=== PATIENT | female | born 1950 | race Caucasian/White ===

== ENCOUNTER 2019-01-22 18:11 | Emergency (ER) | payer MEDICARE, OTHER ==
--- NOTE | 2019-01-22 19:18 | ED ---
General Adult HPI - General Chief complaint: Recheck/Abnormal Lab/Rx Stated complaint: diabetic issue Time Seen by Provider: 01/22/19 18:47 Source: patient Mode of arrival: ambulatory Limitations: no limitations - History of Present Illness Initial comments: Patient is a 68-year-old female with type 2 diabetes presenting to emergency Department with a chief complaint of high blood sugar. Patient reports over the last several months she has not been able to finish her sentences and has been sleeping in more than usual. Patient reports this has been going on intermittently. 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 Patient reports she used to be on metformin but then she stopped going to the doctor. Patient reports today she decided to go back to her primary care but was not able to obtain an appointment soon enough, so she went to [facility] where they obtained a high blood sugar and advised her to come to this ED. Patient denies blurry vision or chest pain, shortness of breath, headache, nausea, vomiting, confusion. Patient does report increased urgency but denies frequency or dysuria. Patient denies any bowel symptoms. Patient denies any abdominal back pain. Patient denies one-sided weakness or paresthesias. - Related Data Previous Rx's Medication Instructions Recorded Sulfamethox-Tmp 800-160Mg [Bactrim 1 each PO Q12HR #20 tab 01/22/19 Ds] Allergies Allergy/AdvReac Type Severity Reaction Status Date / Time No Known Allergies Allergy Verified 01/22/19 20:10 Review of Systems ROS Statement: Those systems with pertinent positive or pertinent negative responses have been documented in the HPI. ROS Other: All systems not noted in ROS Statement are negative. Past Medical History Past Medical History: Diabetes Mellitus History of Any Multi-Drug Resistant Organisms: None Reported Past Surgical History: Tubal Ligation Additional Past Surgical History / Comment(s): bladder biopsy Past Anesthesia/Blood Transfusion Reactions: No Reported Reaction Past Psychological History: No Psychological Hx Reported Smoking Status: Never smoker Past Alcohol Use History: None Reported Past Drug Use History: None Reported General Exam Limitations: no limitations General appearance: alert, in no apparent distress Head exam: Present: atraumatic, normocephalic, normal inspection Eye exam: Present: normal appearance, PERRL, EOMI. Absent: scleral icterus, conjunctival injection Pupils: Present: normal accommodation ENT exam: Present: normal exam, normal oropharynx, mucous membranes moist, TM's normal bilaterally, normal external ear exam Neck exam: Present: normal inspection, full ROM. Absent: tenderness, lymphadenopathy Respiratory exam: Present: normal lung sounds bilaterally. Absent: respiratory distress, wheezes, rales, chest wall tenderness, accessory muscle use Cardiovascular Exam: Present: regular rate, normal rhythm, normal heart sounds GI/Abdominal exam: Present: soft. Absent: distended, tenderness, guarding, rebound Extremities exam: Present: normal inspection, full ROM, normal capillary refill. Absent: other Back exam: Present: normal inspection, full ROM Neurological exam: Present: alert, oriented X3, CN II-XII intact, normal gait, reflexes normal Psychiatric exam: Present: normal affect, normal mood Skin exam: Present: warm, dry, intact, normal color Course Vital Signs 01/22/19 01/22/19 01/22/19 18:40 20:40 21:37 Temperature 97.9 F 97.7 F 98.7 F Pulse Rate 118 H 90 82 Respiratory 19 18 18 Rate Blood Pressure 184/91 162/81 150/72 O2 Sat by Pulse 98 96 100 Oximetry Medical Decision Making - Medical Decision Making patient is a 68-year-old female with history of type 2 diabetes is presenting to the emergency department with a chief complaint of high blood sugar. According to the mother the patient has apparently also been sleeping in and has not been able to finish her sentences for last several months. CT of the brain is indicative of no acute intracranial changes does indicate a chronic inferior right cerebellar infarct. Patient is not exhibiting any signs of aphasia. Patient is walking slightly abnormally however she states that her baseline due to previous leg injury. CBC and CMP are unremarkable. UA is indicative of leukocyte esterase, white blood cells and nitrates. Patient will be treated for a UTI. The recent changes in personality could be attributed to the UTI considering the patient's age. Patient will be treated with antibiotics. Patient advised to establish a relationship with a new primary care so she came a monitored regularly for diabetes. Patient given a liter of fluids. Patient advised to receive at least 1 or 2 more liters of fluid. Patient given regular insulin. Patient declined states that she wants to go home. Strict return parameters were thoroughly discussed with patient was understanding and agreeable. Case discussed with physician. - Lab Data Result diagrams: 01/22/19 19:35 01/22/19 19:35 Lab Results 01/22/19 01/22/19 01/22/19 Range/Units 19:23 19:35 19:35 WBC 9.8 (3.8-10.6) k/uL RBC 3.18 L (3.80-5.40) m/uL Hgb 13.2 (11.4-16.0) gm/dL Hct 38.2 (34.0-46.0) % MCV 120.0 H (80.0-100.0) fL MCH 41.5 H (25.0-35.0) pg MCHC 34.6 (31.0-37.0) g/dL RDW 14.4 (11.5-15.5) % Plt Count 334 (150-450) k/uL Neutrophils % 75 % Lymphocytes % 20 % Monocytes % 3 % Eosinophils % 1 % Basophils % 0 % Neutrophils # 7.4 (1.3-7.7) k/uL Lymphocytes # 2.0 (1.0-4.8) k/uL Monocytes # 0.3 (0-1.0) k/uL Eosinophils # 0.1 (0-0.7) k/uL Basophils # 0.0 (0-0.2) k/uL Manual Slide Review Performed Macrocytosis Marked A Sodium 138 (137-145) mmol/L Potassium 4.1 (3.5-5.1) mmol/L Chloride 100 (98-107) mmol/L Carbon Dioxide 27 (22-30) mmol/L Anion Gap 11 mmol/L BUN 22 H (7-17) mg/dL Creatinine 0.70 (0.52-1.04) mg/dL Est GFR (CKD-EPI)AfAm >90 (>60 ml/min/1.73 sqM) Est GFR (CKD-EPI)NonAf >90 (>60 ml/min/1.73 sqM) Glucose 372 H (74-99) mg/dL Calcium 9.6 (8.4-10.2) mg/dL Total Bilirubin 1.4 H (0.2-1.3) mg/dL AST 32 (14-36) U/L ALT 39 (9-52) U/L Alkaline Phosphatase 81 (38-126) U/L Total Protein 8.2 (6.3-8.2) g/dL Albumin 4.9 (3.5-5.0) g/dL Urine Color Yellow Urine Appearance Turbid H (Clear) Urine pH 5.0 (5.0-8.0) Ur Specific [place] 1.036 H (1.001-1.035) Urine Protein 1+ H (Negative) Urine Glucose (UA) 4+ H (Negative) Urine Ketones 1+ H (Negative) Urine Blood Moderate H (Negative) Urine Nitrite Positive H (Negative) Urine Bilirubin Negative (Negative) Urine Urobilinogen 2.0 (<2.0) mg/dL Ur Leukocyte Esterase Large H (Negative) Urine RBC 17 H (0-5) /hpf Urine WBC >182 H (0-5) /hpf Ur Squamous Epith Cells 2 (0-4) /hpf Urine Bacteria Many H (None) /hpf Urine Mucus Few H (None) /hpf Urine Yeast (Budding) Few H (None) /hpf Disposition Clinical Impression: Urinary tract infection Disposition: HOME SELF-CARE Condition: Stable Instructions (If sedation given, give patient instructions): Urinary Tract Infection in Women (ED) Additional Instructions: Please take prescribed medication as directed. Please follow up primary care. Please return to emergency department if symptoms worsen. Prescriptions: Sulfamethox-Tmp 800-160Mg [Bactrim Ds] 1 each PO Q12HR #20 tab Is patient prescribed a controlled substance at d/c from ED?: No Referrals: None,Stated [Primary Care Provider] - 1-2 days Blair Ochoa MD [REFERRING] - 1-2 days Time of Disposition: 21:12
[2019-01-22] MEDS ORDERED: SODIUM CHLORIDE 0.9% 1,000 ML IV STA (19:30)
[2019-01-22 19:44] LABS: Appearance,Urine Turbid (Clear); Bacteria,Urine Many /hpf; Bilirubin,Urine Negative (Negative); Blood,Urine Moderate (Negative); Budding Yeast,Urine Few /hpf; Color,Urine Yellow; Glucose,Urine (UA) 4+ (Negative); Ketones,Urine 1+ (Negative); Leukocyte Esterase,Urine Large (Negative); Mucus,Urine Few /hpf; Nitrite,Urine Positive (Negative); Protein,Urine 1+ (Negative); RBC,Urine 17 /hpf (0-5); Specific Gravity,Urine 1.036 (1.001-1.035); Squamous Epithelial Cell,Urine 2 /hpf (0-4)
[2019-01-22 20:02] LABS: Basophils % (A) 0 %; Eosinophils # (A) 0.1 k/uL (0-0.7); Eosinophils % (A) 1 %; HCT 38.2 % (34.0-46.0); HGB 13.2 gm/dL (11.4-16.0); Lymphocytes % (A) 20 %; MCH 41.5 pg (25.0-35.0); MCHC 34.6 g/dL (31.0-37.0); Macrocytosis Marked; Mean Platelet Volume 5.9; Monocytes # (A) 0.3 k/uL (0-1.0); Monocytes % (A) 3 %; Neutrophils # (A) 7.4 k/uL (1.3-7.7); Neutrophils % (A) 75 %; Platelet Count 334 k/uL (150-450); RBC 3.18 m/uL (3.80-5.40); RDW 14.4 % (11.5-15.5); WBC 9.8 k/uL (3.8-10.6)
[2019-01-22 20:29] LABS: ALT 39 U/L (9-52); AST 32 U/L (14-36); African American GFR (CKD) >90 (>60 ml/min/1.73 sqM); Albumin 4.9 g/dL (3.5-5.0); Alkaline Phosphatase 81 U/L (38-126); Anion Gap 11 mmol/L; Blood Urea Nitrogen 22 mg/dL (7-17); Calcium 9.6 mg/dL (8.4-10.2); Carbon Dioxide 27 mmol/L (22-30); Chloride 100 mmol/L (98-107); Glucose 372 mg/dL (74-99); Potassium 4.1 mmol/L (3.5-5.1); Sodium 138 mmol/L (137-145); Total Bilirubin 1.4 mg/dL (0.2-1.3); Total Protein 8.2 g/dL (6.3-8.2)
--- NOTE | 2019-01-22 20:33 | CT ---
EXAMINATION TYPE: CT brain [place] [facility] DATE OF EXAM: 01/22/2019 COMPARISON: CT brain September 03, 2010. HISTORY: Confusion, dysphasia. Neck pain. CT DLP: 1271.4 mGycm. Automated Exposure Control for Dose Reduction was Utilized. TECHNIQUE: CT scan of the head and cervical spine are performed without contrast. FINDINGS: There is no acute intracranial hemorrhage or midline shift identified. Diffuse ventricula r and sulcal prominence. Some low-attenuation in the deep and periventricular white matter. Age-indet erminate inferior right cerebellar infarct new from 2010 CT suspected subacute or chronic in age. Cor relate clinically. The globes are intact and the visualized sinuses are clear. Cervical spine is visualized in its entirety from C1 through upper thoracic levels and demonstrates s traightens alignment without evidence of acute fracture or dislocation. There is grade 1 anterolisthe sis of C3 on C4. Prevertebral soft tissue appears within normal limits. The C1-C2 articulation is w ithin normal limits on the coronal images. Vertebral body heights are maintained. Mild to moderate d isc space narrowing C4-C5 level with moderate disc space narrowing and spurring C5-C6 and C6-C7 level s. Posterior spur disc complex effaces the anterior thecal sac at C5-C6 level. Posterior disc herniat ion effaces the anterior thecal sac at C4-C5 level. Axial images show multilevel uncovertebral facet degenerative changes left C2-C3 and C3-C4 levels along with bilateral C4-C5 levels. Thyroid gland is within normal limits. Lung apices are clear. IMPRESSION: 1. There is no acute fracture or dislocation evident in the cervical spine. 2. No acute intracranial hemorrhage or midline shift is seen. Subacute or chronic inferior right cere bellar infarct is felt present. Correlate clinically.
[2019-01-22 20:41] VITALS: RESP 18
[2019-01-22] MEDS ORDERED: cefTRIAXone IN SWFI 1,000 MG/10 ML SYRINGE IVP STA (21:11)
[2019-01-22] MEDS ORDERED: INSULIN REGULAR 100 UNIT/ML VIAL IV ONE (21:13)
[2019-01-22 21:39] VITALS: BP 150/72; PULSE 82; TEMP 98.7
== END 2019-01-22 21:39 | disposition home or self-care (01) ==
LOC: EC 18:11
DX: N39.0 Urinary tract infection, site not specified (principal); E11.65 Type 2 diabetes mellitus with hyperglycemia; F68.8 Other specified disorders of adult personality and behavior; Z79.84 Long term (current) use of oral hypoglycemic drugs
CPT/HCPCS: 36415; 80053; 85025; 81001; 87086; 87077; 87186; 72125; 70450; 99285; 96374; 96361; J0696

== ENCOUNTER → 2019-02-08 | Outpatient (CLI) | payer MEDICARE ==
[2019-02-08 10:10] LABS: Basophils % (A) 0 %; Eosinophils # (A) 0.1 k/uL (0-0.7); Eosinophils % (A) 1 %; HCT 37.1 % (34.0-46.0); Lymphocytes # (A) 1.2 k/uL (1.0-4.8); Lymphocytes % (A) 13 %; MCHC 35.2 g/dL (31.0-37.0); MCV 120.6 fL (80.0-100.0); Macrocytosis Marked; Mean Platelet Volume 6.3; Monocytes # (A) 0.2 k/uL (0-1.0); Monocytes % (A) 2 %; Neutrophils # (A) 7.7 k/uL (1.3-7.7); Neutrophils % (A) 83 %; Platelet Count 285 k/uL (150-450); RBC 3.07 m/uL (3.80-5.40); RDW 13.8 % (11.5-15.5); WBC 9.4 k/uL (3.8-10.6)
[2019-02-08 10:13] LABS: MCH 42.4 pg (25.0-35.0)
[2019-02-08 11:44] LABS: Hypersegmented Neutrophils Present
[2019-02-08 11:45] LABS: Poikilocytosis (M) Present
[2019-02-08 17:30] LABS: African American GFR (CKD) 49.5 (60.0-200.0); Albumin 4.6 g/dL (3.80-4.90); Albumin/Globulin Ratio 1.77 (1.60-3.17); Anion Gap 10.9 mmol/L (4.00-12.00); BUN/Creat Ratio 37.69 Ratio (12.00-20.00); Calcium 9.7 mg/dL (8.7-10.3); Carbon Dioxide 23.1 mmol/L (21.6-31.8); Chol/HDL Ratio 4.23; Globulin 2.6 g/dL (1.6-3.3); LDL Cholesterol,Calculated 69.4 mg/dL (0.0-131.0); Non-African American GFR(CKD) 42.7 (60.0-200.0); Total Bilirubin 0.7 mg/dL (0.3-1.2); Total Protein 7.2 g/dL (6.2-8.2); VLDL Calculation 43.6 mg/dL (5.00-40.00)
== END | disposition home or self-care (01) ==
LOC: LABWHC1 09:10
PROVIDERS: ATTEND Psychiatry & Neurology Neurology
DX: E55.9 Vitamin D deficiency, unspecified (principal); I63.9 Cerebral infarction, unspecified; E78.5 Hyperlipidemia, unspecified; R41.3 Other amnesia
CPT/HCPCS: 36415; 80053; 80061; 82306; 82607; 83090; 84207; 85025

== ENCOUNTER 2019-03-21 09:45 | Emergency (ER) | payer MEDICARE ==
--- NOTE | 2019-03-21 10:32 | ED ---
Extremity Problem HPI - General Chief complaint: Extremity Problem,Nontraumatic Stated complaint: left knee pain Time Seen by Provider: 03/21/19 09:56 Source: patient Mode of arrival: wheelchair Limitations: no limitations - History of Present Illness Initial comments: Patient is a 68-year-old female presenting to emergency Department with complaints of left knee pain since yesterday. Patient denies any injuries or fall to left knee. Patient states she has been having intermittent mild pain for years now. No surgeries. Patient states she woke up for a nap yesterday with some mild pain but now she is unable to bear weight on the left lower extremity. Patient denies history of DVT, is not on blood thinners. Patient denies fever, chills, nausea, vomiting. She has no other complaints at this time. Upon arrival to the ER, her vital signs are stable. - Related Data Previous Rx's Medication Instructions Recorded Sulfamethox-Tmp 800-160Mg [Bactrim 1 each PO Q12HR #20 tab 01/22/19 Ds] Allergies Allergy/AdvReac Type Severity Reaction Status Date / Time No Known Allergies Allergy Verified 03/21/19 09:50 Review of Systems ROS Statement: Those systems with pertinent positive or pertinent negative responses have been documented in the HPI. ROS Other: All systems not noted in ROS Statement are negative. Past Medical History Past Medical History: Diabetes Mellitus History of Any Multi-Drug Resistant Organisms: None Reported Past Surgical History: Tubal Ligation Additional Past Surgical History / Comment(s): bladder biopsy Past Anesthesia/Blood Transfusion Reactions: No Reported Reaction Past Psychological History: No Psychological Hx Reported Smoking Status: Never smoker Past Alcohol Use History: None Reported Past Drug Use History: None Reported General Exam - General Exam Comments Initial Comments: GENERAL: Well-appearing, well-nourished and in no acute distress. Patient sitting in wheelchair with left knee extended. HEAD: Atraumatic, normocephalic. EYES: Pupils equal round and reactive to light, extraocular movements intact, sclera anicteric, conjunctiva are normal. ENT: Moist mucous membranes. NECK: Normal range of motion, supple without lymphadenopathy or JVD. LUNGS: Breath sounds clear to auscultation bilaterally and equal. No wheezes rales or rhonchi. HEART: Regular rate and rhythm without murmurs, rubs or gallops. ABDOMEN: Soft, nontender, normoactive bowel sounds. No guarding, no rebound. No masses appreciated. EXTREMITIES: Pain with palpation of the anterior left knee as well as posterior aspect, significant pain with slight left knee flexion. Extension is full. There is no swelling or overlying erythema. Sensation is equal bilateral.. No pain in the bilateral calf area. NEUROLOGICAL: Normal speech.. PSYCH: Normal mood, normal affect. SKIN: Warm, Dry, normal turgor, no rashes or lesions noted. Limitations: no limitations Course Vital Signs 03/21/19 03/21/19 09:49 12:14 Temperature 97.3 F L 98 F Pulse Rate 115 H 78 Respiratory 18 16 Rate Blood Pressure 176/94 150/78 O2 Sat by Pulse 100 98 Oximetry Medical Decision Making - Medical Decision Making Patient is a 8-year-old male presenting with left knee pain times one day. No injuries or trauma. No history DVT. Ultrasound of the right lower extremity shows no signs of DVT. X-rays reveal large amount of arthritic changes. These findings were discussed with the patient. Patient will be given referral to orthopedics. She is in agreement with this plan of care. She will have a trial of anti-inflammatories as well as compression wrapping. Disposition Clinical Impression: Left knee pain Disposition: HOME SELF-CARE Condition: Stable Instructions (If sedation given, give patient instructions): Knee Pain (ED) Additional Instructions: Please return to the Emergency Department if symptoms worsen or any other concerns. Trial of heat and/or ice to the left knee. Anti-inflammatories such as Aleve. Follow-up with orthopedics as discussed. Is patient prescribed a controlled substance at d/c from ED?: No Referrals: Bruce Love DO [Primary Care Provider] - 1-2 days Thro Melendez MD [Medical Doctor] - 1-2 days
--- NOTE | 2019-03-21 10:50 | US ---
EXAMINATION TYPE: US venous doppler duplex LE LT DATE OF EXAM: 03/21/2019 10:43 AM COMPARISON: NONE CLINICAL HISTORY: pain. Severe left knee pain SIDE PERFORMED: left TECHNIQUE: The lower extremity deep venous system is examined utilizing real time linear array sonog jose with graded compression, doppler sonography and color-flow sonography. VESSELS IMAGED: External Iliac Vein (EIV) Common Femoral Vein Deep Femoral Vein Greater Saphenous Vein * Femoral Vein Popliteal Vein Small Saphenous Vein * Proximal Calf Veins (* superficial vessels) Left Leg: No evidence of DVT as visualized IMPRESSION: 1. Left lower extremity ultrasound negative for deep venous thrombosis.
--- NOTE | 2019-03-21 11:28 | XR ---
EXAMINATION TYPE: XR knee complete LT DATE OF EXAM: 03/21/2019 CLINICAL HISTORY: Left knee pain TECHNIQUE: Three views of the left knee are obtained. COMPARISON: None. FINDINGS: There is no acute fracture/dislocation evident in left knee. There is advanced tricompartm ental arthropathy with joint space narrowing and marginal osteophyte. There is also bicompartmental c hondrocalcinosis of the medial and lateral compartments. Diffuse osseous demineralization is seen. Th ere is a moderate suprapatellar joint effusion. IMPRESSION: There is no acute fracture or dislocation in the left knee. Advanced tricompartmental ar thropathy, bicompartmental chondrocalcinosis, and moderate suprapatellar joint effusion.
[2019-03-21] MEDS ORDERED: IBUPROFEN 600 MG TAB PO STA (12:02)
[2019-03-21 12:16] VITALS: BP 150/78; PULSE 78; RESP 16; TEMP 98
== END 2019-03-21 12:14 | disposition home or self-care (01) ==
LOC: EC 09:45
DX: M25.562 Pain in left knee (principal); E11.9 Type 2 diabetes mellitus without complications
CPT/HCPCS: 99284

== ENCOUNTER → 2019-05-09 | Outpatient (CLI) | payer MEDICARE ==
[2019-05-09 17:42] LABS: HCT 33.9 % (34.0-46.0); HGB 11.1 gm/dL (11.4-16.0); MCHC 32.7 g/dL (31.0-37.0); MCV 94.8 fL (80.0-100.0); Mean Platelet Volume 6.9; Platelet Count 432 k/uL (150-450); RBC 3.58 m/uL (3.80-5.40); RDW 13.7 % (11.5-15.5)
[2019-05-09 17:54] LABS: INR 0.9 (<1.2); Partial Thromboplastin Time 25.2 sec (22.0-30.0); Prothrombin Time 9.8 sec (9.0-12.0)
[2019-05-09 17:55] LABS: Albumin 4.2 g/dL (3.5-5.0); Potassium 4.7 mmol/L (3.5-5.1); Total Bilirubin 0.5 mg/dL (0.2-1.3); Total Protein 7.3 g/dL (6.3-8.2)
== END ==
LOC: LABPAT 16:24
PROVIDERS: ATTEND Orthopaedic Surgery
DX: Z01.812 Encounter for preprocedural laboratory examination (principal)
CPT/HCPCS: 80053; 85027; 85610; 85730; 87070

== ENCOUNTER → 2019-05-09 | Outpatient (CLI) | payer MEDICARE ==
[2019-05-10 15:04] LABS: Appearance,Urine Clear (Clear); Bilirubin,Urine 1+ (Negative); Blood,Urine Negative (Negative); Color,Urine Yellow; Glucose,Urine (UA) Negative (Negative); Ketones,Urine Negative (Negative); Leukocyte Esterase,Urine Negative (Negative); Nitrite,Urine Negative (Negative); Protein,Urine Negative (Negative); Specific Gravity,Urine 1.025 (1.001-1.035)
== END | disposition home or self-care (01) ==
LOC: LABPAT 13:28
PROVIDERS: ATTEND Orthopaedic Surgery
DX: Z01.812 Encounter for preprocedural laboratory examination (principal)
CPT/HCPCS: 81003

== ENCOUNTER 2019-05-29 07:17 | Day surgery (SDC) | payer MEDICARE ==
[2019-05-25 15:55] VITALS: BMI 26.4
[~2019-05-29 07:17] MED LIST: ACETAMINOPHEN TAB 500 MG TAB PO ONE; DEXAMETHASONE SOD PHOSPHATE 10 MG/ML 1 ML VIAL IV ONE; GABAPENTIN 300 MG CAP PO ONE; HYDROmorphone 0.5 MG/0.5 ML SYRINGE IVP PRN; LACTATED RINGERS 1,000 ML IV SCH; LIDOCAINE 1% (10MG/ML) FOR IV START INTRADERMA PRN; MELOXICAM 7.5 MG TAB PO ONE; MIDAZOLAM 2 MG/2 ML VIAL IV PRN; ONDANSETRON 4 MG/2 ML VIAL IVP ONE; ROPIVACAINE 246.25 MG, EPINEPHrine 0.5 MG, KETOROLAC 30 MG, cloNIDine HCL/PF 80 MCG, WA... MISCELLANE ONE; TRANEXAMIC ACID 1,000 MG in SODIUM CHLORIDE 0.9% 100 ML IVPB ONE; fentaNYL (PF) 50 MCG/ML 2 ML AMP IV PRN
[2019-05-29 08:08] LABS: Glucose,Whole Blood 133 mg/dL (75-99)
[2019-05-29] MEDS ORDERED: fentaNYL (PF) 50 MCG/ML 2 ML AMP IVP ONE (08:38)
[2019-05-29] MEDS ORDERED: MIDAZOLAM 2 MG/2 ML VIAL IVP ONE (08:38)
[2019-05-29] MEDS ORDERED: PHENYLEPHRINE-0.9% NACL SYG 1 MG/10 ML SYRINGE ONE (09:43)
[2019-05-29] MEDS ORDERED: SODIUM CHLORIDE 0.9% 100 ML BAG ONE (09:43)
[2019-05-29] MEDS ORDERED: MIDAZOLAM 2 MG/2 ML VIAL ONE (09:43)
[2019-05-29] MEDS ORDERED: TRANEXAMIC ACID 1,000 MG/10 ML VIAL ONE (09:43)
[2019-05-29] MEDS ORDERED: PROPOFOL 10 MG/ML 20 ML VIAL IV ONE (09:43)
[2019-05-29] MEDS ORDERED: ceFAZolin 3,000 MG in SODIUM CHLORIDE 0.9% IRRIGATIO 3,000 ML IRRIGATION ONE (09:48)
[2019-05-29] MEDS ORDERED: ROPIVACAINE 0.2%-NS ON-Q PUMP 1,090 MG, EMPTY PAIN BALL 1 EACH MISCELLANE PRN (10:15)
--- NOTE | 2019-05-29 10:17 | P.ANPRN ---
Procedure Note - Anesthesia - Nerve Block Performed Left Adductor Canal Infusion Time Out Performed: Yes Date of Procedure: 05/29/19 Procedure Start Time: 08:35 Procedure Stop Time: 08:55 Location of Patient: PreOp Indication: Acute Post-Operative Pain, Dx/Pain Location, Requested by Surgeon Sedation Type: Sedate with meaningful contact maintained Preparation: Sterile Prep Position: Supine Catheter: Indwelling Needle Types: Pajunk Needle Gauge: 21 Ultrasound used to visualize needle placement: Yes Ultrasound used to observe medication spread: Yes Injectate: 0.5% Ropivacaine (see comment for volume) (15ml) Blood Aspirated: No Pain Paresthesia on Injection Noted: No Resistance on Injection: Normal Image Stored and Saved: Yes Events: Uneventful and Well Tolerated
--- NOTE | 2019-05-29 10:18 | P.ANPRN ---
Procedure Note - Anesthesia - Nerve Block Performed Left Other (see comment) Single Time Out Performed: Yes (IPACK NERVE BLOCK) Date of Procedure: 05/29/19 Procedure Start Time: 08:55 Procedure Stop Time: 09:00 Location of Patient: PreOp Indication: Acute Post-Operative Pain, Dx/Pain Location, Requested by Surgeon Sedation Type: Sedate with meaningful contact maintained Preparation: Sterile Prep Position: Right Lateral Catheter: None Needle Types: Pajunk Needle Gauge: 21 Ultrasound used to visualize needle placement: No Ultrasound used to observe medication spread: No Injectate: Other (see comment) (15 ML 0.25% ROPIVACAINE) Blood Aspirated: No Pain Paresthesia on Injection Noted: No Resistance on Injection: Normal Image Stored and Saved: Yes Events: Uneventful and Well Tolerated
[2019-05-29] MEDS ORDERED: LACTATED RINGERS 1,000 ML IV ONE (10:21)
--- NOTE | 2019-05-29 11:13 | P.OP ---
Date of Procedure: 05/29/19 Preoperative Diagnosis: Severe osteoarthritis left knee Postoperative Diagnosis: Severe osteoarthritis left knee Procedure(s) Performed: Left total knee arthroplasty Implants: [employer]hew Journey II CR Oxinium cruciate retaining femoral component size 5, left [employer]hew Journey left nonporous tibial baseplate size 4 [employer]hew Journey II, XLPE Deep Dished articular insert, size 12 mm, Size 3-4 left [employer] Journey BCS resurfacing oval patellar component, 29 mm All components were cemented using [place] R bone cement.. The articulation is Oxinium on polyethylene. Anesthesia: spinal Surgeon: Jayesh Deleon Care Director #1: Carlo Will Estimated Blood Loss (ml): 30 Pathology: other (Bone and cartilage) Condition: stable Disposition: PACU Indications for Procedure: After failure of conservative treatment we discussed the surgical and nonsurgical treatment options at length. Patient wishes to proceed with a total knee arthroplasty. Complications specific to this procedure were discussed at length, including but not limited to infection, bleeding, stiffness, and nerve injury. Patient is aware of all these complications and informed consent was obtained Operative Findings: The operative findings are consistent with severe osteoarthritis of the left knee Description of Procedure: Patient was seen in the preoperative area consent was reviewed and operative site was marked with a skin marker. An adductor canal pain catheter was placed by anesthesia in the preoperative area. Patient was then brought to the operating room and given preoperative antibiotics intravenously. A spinal anesthetic was administered by the anesthesia department. A tourniquet was placed on the upper thigh and the lower extremity was prepped and draped in usual sterile fashion. A gram of transexamic acid was given. A universal timeout was then performed which confirmed the patient's name, surgical site, ALLERGIES, and consent. The lower extremity was then exsanguinated and tourniquet was inflated to 250 mmHg. A standard and anterior midline approach to the knee was performed. The skin and subcutaneous tissue was dissected down to the patellar tendon. A medial parapatellar arthrotomy was then performed. The knee was then extended, the patellar was everted, and the knee was again flexed. The patellar fat pad was removed in order to enhance exposure. Anterior horns of both menisci were excised, and a release was performed to the posterior medial aspect of the knee. On gross visual inspection, there was complete loss of articular cartilage in the medial and patellofemoral joint spaces. There was also significant cartilage damage in the lateral compartment. There were multiple periarticular osteophytes which were then removed with a Ronguer. The femoral canal was then opened with the 9.5 mm intramedullary drill. The 8 mm intramedullary cristy was then inserted into the femoral canal. The distal femoral cutting guide was then placed and set for 5 of valgus. The distal femoral cutting block was then pinned in place. The intramedullary cristy was then removed, and the distal femur was then cut. The cutting block was then removed and the cut was checked for symmetry. Next, the sizing guide was then placed and set for 3 external rotation based off of the epicondylar axis and Whitesides line. Pins were then placed and the drill holes, and the femur was sized with the sizing stylus. The pins were then removed, and the sizing guide was then removed. The spikes of the femoral block was then placed into the predrilled holes, and malleted into place. Two 45 mm pins were then placed into the fixation holes on the cutting block. An ritesh wing was then used to ensure there would be no notching with the anterior cut. The anterior condyles were cut without notching. The anterior cord cut was then performed, followed by the posterior cut, posterior chamfer cut, and the anterior chamfer cut. The collateral ligaments were protected during the entire process. The cutting block was then removed, and the femoral canal was plugged with autologous bone. Attention was then directed to the tibia. The remaining ACL was removed with a Ronguer, and the tibia was then gently subluxed forward with a large bent knee retractor. Any remaining menisci was excised. The posterior lateral corner was cauterized in order to cauterize the lateral geniculate artery. The extra medullary tibial cutting guide was then placed, set for the appropriate rotation, slope, and depth of resection. The proximal tibia cutting guide was then pinned in place. Proximal tibia was then cut and sized. Next trials were then placed with the appropriate-sized insert. The knee was able to fully extend and flex to 130 and was stable throughout all range of motion. The knee was then extended, patella everted. Patella was then measured, and then using an osteotomy guide, the patella was cut at the appropriate level. The patella was then measured and drilled and the patella trial was then placed. The knee was then taken through range of motion with the patella trial and the patella tracked normally. The knee was then extended patella trial was then removed and the patella was everted. Knee was then flexed and lug holes were drilled through the femoral trial and the femoral trial was then removed. The tibial was then exposed, and the tibial broach guide was then pinned in place after it was set for the appropriate rotation to allow for the most coverage without overhang. The tibia was then reamed and broached. The cut surfaces of bone were then irrigated with pulsatile lavage. The posterior structures were injected with the ropivacaine solution. The knee was also irrigated with Irrisept solution. The components were then opened, the cement was mixed, and the components were then cemented in place. The cement was allowed to harden with the knee in full extension. While the cement was hardening, the remaining soft tissues were then injected with a ropivacaine solution, which consisted of 246.25 mg of ropivacaine, 0.5 mg of epinephrine, 30 mg of Toradol, 80 g of clonidine, and 48.45 mL of sterile water, for a total of 100 mL of fluid injected. After the cemented hardened. The tourniquet was released, and hemostasis was obtained. A second gram of transexamic acid was given. The knee was again irrigated. The knee was again taken through range of motion and found to be stable throughout all range of motion of 0-130, and the patella tracked normally. The fascia was then closed with #2 strata fix suture. The subcutaneous tissue was closed with 3-0 Vicryl and 3-0 strata fix. Dermabond glue was used for the skin and placed with the knee in flexion. The patient was placed in a sterile silver dressing. Patient was then transferred to recovery room in stable condition. The assistant store leader JAREK Bolton was required due the complexity surgery and the need for a skilled neurosurgical nurse practitioner. She assisted in positioning, draping, retraction, and closure of the wound.
[2019-05-29] MEDS ORDERED: MAGNESIUM HYDROXIDE 2,400 MG/10 ML CUP PO PRN (11:41)
[2019-05-29] MEDS ORDERED: HYDROmorphone 0.5 MG/0.5 ML SYRINGE IVP PRN ×3 (11:41)
[2019-05-29] MEDS ORDERED: NALOXONE 0.4 MG/ML 1 ML VIAL IV PRN (11:41)
[2019-05-29] MEDS ORDERED: ACETAMINOPHEN TAB 325 MG TAB PO PRN (11:41)
[2019-05-29] MEDS ORDERED: DIAZEPAM 5 MG TAB PO PRN (11:41)
[2019-05-29] MEDS ORDERED: HYDROcodone/APAP 5-325MG 1 EACH TAB PO PRN (11:41)
[2019-05-29] MEDS ORDERED: HYDROcodone/APAP 10-325MG 1 EACH TAB PO PRN (11:41)
[2019-05-29] MEDS ORDERED: NA PHOS,M-B/NA PHOS,DI-BA 133 ML ENEMA RECTAL PRN (11:41)
[2019-05-29] MEDS ORDERED: BISACODYL 10 MG SUPP RECTAL PRN (11:41)
[2019-05-29] MEDS ORDERED: TEMAZEPAM 15 MG CAP PO PRN (11:41)
[2019-05-29] MEDS ORDERED: ONDANSETRON 4 MG/2 ML VIAL IVP PRN (11:41)
[2019-05-29] MEDS ORDERED: traMADol 50 MG TAB PO PRN (11:41)
[2019-05-29] MEDS ORDERED: LACTATED RINGERS 1,000 ML IV SCH (11:45)
--- NOTE | 2019-05-29 12:40 | XR ---
EXAMINATION TYPE: XR knee limited LT DATE OF EXAM: 05/29/2019 CLINICAL HISTORY: Left knee pain and arthritis status post total knee replacement. TECHNIQUE: Portable AP and crosstable lateral views of the left knee are obtained immediately postop eratively. COMPARISON: Prior left knee x-ray March 21, 2019. FINDINGS: [place] osseous structures remain demineralized. Metallic hardware from total left knee art hroplasty is seen and appears satisfactory in alignment and position. There is evidence of recent enamorado rgery with diffuse subcutaneous and soft tissue swelling noted. Posterior vascular calcification red emonstrated. IMPRESSION: METALLIC HARDWARE FROM TOTAL LEFT KNEE ARTHROPLASTY IS SATISFACTORY IN ALIGNMENT.
[2019-05-29 17:03] LABS: Glucose,Whole Blood 290 mg/dL (75-99)
[2019-05-29] MEDS: INSULIN ASPART (NovoLOG) 100 UNIT/ML VIAL SQ SCH ×2 (17:50→21:32)
[2019-05-29 20:06] LABS: Glucose,Whole Blood 373 mg/dL (75-99)
[2019-05-29] MEDS ORDERED: SENNOSIDES-DOCUSATE SODIUM 1 EACH TAB PO SCH (21:00)
[2019-05-29] MEDS ORDERED: ATORVASTATIN 10 MG TAB PO SCH (21:00)
[2019-05-29 21:26] LABS: Glucose,Whole Blood 295 mg/dL (75-99)
[2019-05-29] MEDS: ASPIRIN 325 MG TAB PO SCH (21:27)
[2019-05-29] MEDS: metFORMIN 500 MG TAB PO SCH (21:27)
--- NOTE | 2019-05-29 23:17 | P.CONS ---
History of Present Illness - Reason for Consult Consult date: 05/29/19 Medical management Requesting physician: Jayesh Deleon - Chief Complaint Left knee surgery - History of Present Illness Consultation: This is a very pleasant [address] Love. Chronic stable medical conditions include diabetes, hyperlipidemia, hypertension, Patrice arthritis. Has undergone a left total knee arthroplasty. Postprocedure pain is well contro lled. No nausea vomiting. Did tolerate her diet. Has been already out of bed. Review of systems: GEN.: None EYES: None HEENT: None NECK: None RESPIRATORY: None CARDIOVASCULAR: None GASTROINTESTINAL: None GENITOURINARY: None MUSCULOSKELETAL: Joint pains] LYMPHATICS: None HEMATOLOGICAL: None PSYCHIATRY: None NEUROLOGICAL: None Past medical history to include: Diabetes, hypertension, hyperlipidemia, osteoporosis, TIA. Social history: Does not smoke or drink alcohol. Lives alone. Physical examination: VITAL SIGNS: 98, 70, 17, blood pressure 105/59, 95% on room air GENERAL: BMI 26.7, laying in bed, awake. EYES: Pupils equal. Conjunctiva normal. HEENT: External appearance of nose and ears normal, oral cavity grossly normal. NECK: JVD not raised; masses not palpable. HEART: First and second heart sounds are normal; no edema. LUNGS: Respiratory rate normal; clear to auscultation. ABDOMEN: Soft, nontender, liver spleen not palpable, no masses palpable. PSYCH: Alert and oriented x3; mood and affect normal MUSCULOSKELETAL: Left main and a dressing. NEUROLOGICAL: Cranial nerves grossly intact; no facial asymmetry, power and sensation grossly intact. LYMPHATICS: No lymph nodes palpable in the axilla and neck INVESTIGATIONS, reviewed in the clinical context: Lab work from May 09, 2019: White count and hemoglobin 11.1 potassium 4.7 bun 44 creatinine 1.3 Assessment: --Left total knee arthroplasty -Diabetes mellitus type II on oral hypoglycemic -Hyperlipidemia -Essential hypertension -Primary osteoarthritis -Chronic kidney disease stage III probably from nephrosclerosis Plan: Home medications resumed. Patient is on aspirin for DVT prophylaxis. Given the chronic kidney disease have to be careful over the renal function. Closely monitored. Otherwise she can choose an alternative agent. Care was discussed with the patient. Thank you Dr. Deleon Past Medical History Past Medical History: CVA/TIA, Diabetes Mellitus, Hyperlipidemia, Hypertension, Osteoarthritis (OA) Additional Past Medical History / Comment(s): VERY SLIGHT TIA PER NEUROLOGIST-NO DEFICITS-PT UNAWARE History of Any Multi-Drug Resistant Organisms: None Reported Past Surgical History: Tubal Ligation Additional Past Surgical History / Comment(s): bladder biopsy Past Anesthesia/Blood Transfusion Reactions: No Reported Reaction Past Psychological History: No Psychological Hx Reported Smoking Status: Never smoker Past Alcohol Use History: None Reported Past Drug Use History: None Reported - Past Family History Father Family Medical History: Cancer Medications and Allergies Home Medications Medication Instructions Recorded Confirmed Type Aspirin [Adult Low Dose Aspirin EC] 81 mg PO DAILY 05/25/19 05/29/19 History Atorvastatin [Lipitor] 10 mg PO HS 05/25/19 05/29/19 History Txchyshgkyezjv-UM-Vmcrfzqdoh 1 tab PO DAILY 05/25/19 05/29/19 History [Folbic] Lisinopril-Hctz 20-12.5 mg 1 tab PO DAILY 05/25/19 05/29/19 History [Zestoretic 20-12.5] Multivitamin/Iron/Folic Acid 1 tab PO DAILY 05/25/19 05/29/19 History [Centrum Complete Multivit Tab] glipiZIDE [Glucotrol] 5 mg PO AC-BID 05/25/19 05/29/19 History metFORMIN HCL 1,000 mg PO BID 05/25/19 05/29/19 History Allergies Allergy/AdvReac Type Severity Reaction Status Date / Time No Known Allergies Allergy Verified 05/25/19 15:41 Physical Exam Vitals: Vital Signs Temp Pulse Pulse Resp BP Pulse Ox 05/29/19 19:26 98.0 F 70 17 105/59 95 05/29/19 16:41 97.8 F 82 18 105/69 100 05/29/19 13:30 81 18 112/54 99 05/29/19 13:00 82 16 108/54 100 05/29/19 12:30 85 16 108/55 100 05/29/19 12:15 80 16 106/53 100 05/29/19 12:00 73 16 90/54 100 05/29/19 11:45 82 16 107/52 100 05/29/19 11:37 98.0 F 85 16 100/53 97 05/29/19 09:00 96 18 113/52 99 05/29/19 07:44 99.4 F 61 16 138/61 95 Intake and Output 05/29/19 05/29/19 05/30/19 14:59 22:59 06:59 Intake Total 1651 200 Output Total 30 Balance 1621 200 Intake: IV 1651 Oral 200 Output: Estimated Blood Loss 30 Other: # Voids 1 Weight 64 kg Results Labs: Abnormal Lab Results - Last 24 Hours (Table) 05/29/19 05/29/19 05/29/19 Range/Units 08:00 17:01 20:05 POC Glucose (mg/dL) 133 H 290 H 373 H (75-99) mg/dL 05/29/19 Range/Units 21:25 POC Glucose (mg/dL) 295 H (75-99) mg/dL
[2019-05-30 06:46] LABS: Glucose,Whole Blood 105 mg/dL (75-99)
[2019-05-30] MEDS: INSULIN ASPART (NovoLOG) 100 UNIT/ML VIAL SQ SCH ×2 (07:26→12:09)
[2019-05-30] MEDS ORDERED: glipiZIDE 5 MG TAB PO SCH (07:30)
[2019-05-30 07:42] LABS: Basophils % (A) 0 %; Eosinophils % (A) 0 %; HCT 26.6 % (34.0-46.0); Lymphocytes # (A) 1.4 k/uL (1.0-4.8); Lymphocytes % (A) 7 %; MCH 30.4 pg (25.0-35.0); MCHC 33.5 g/dL (31.0-37.0); MCV 90.7 fL (80.0-100.0); Monocytes # (A) 0.5 k/uL (0-1.0); Monocytes % (A) 3 %; Neutrophils % (A) 89 %; Platelet Count 315 k/uL (150-450); RBC 2.94 m/uL (3.80-5.40); RDW 13.7 % (11.5-15.5); WBC 19.1 k/uL (3.8-10.6)
[2019-05-30 07:45] LABS: HGB 8.9 gm/dL (11.4-16.0)
[2019-05-30] MEDS: metFORMIN 500 MG TAB PO SCH (07:49)
[2019-05-30] MEDS: ASPIRIN 325 MG TAB PO SCH (07:49)
[2019-05-30 07:52] VITALS: BP 111/56; PULSE 70; RESP 16; TEMP 98.3
--- NOTE | 2019-05-30 08:23 | P.DS ---
Providers Expected date of discharge: 05/30/19 Attending physician: Jayesh Deleon Consults: 05/29/19 11:41 Consult Physician Routine Consulting Provider: Francis Austin Consult Reason/Comments: Post op medical management Do you want consulting provider notified?: Yes Primary care physician: Bruce Love - Discharge Diagnosis(es) (1) Status post left knee replacement Current Visit: Yes Status: Acute (2) Osteoarthritis of left knee Current Visit: Yes Status: Acute (3) Diabetes type 2, controlled Current Visit: No Status: Acute Hospital Course: This is a pleasant 68-year-old female last seen in our office with complaints of left knee pain. Patient has known history of degenerative arthritis of the left knee and presented to discuss options. After discussion and consideration, the patient elected to proceed with a left total knee arthroplasty. Patient was seen preoperatively, and medically cleared for surgery by her primary care physician. Patient was admitted to [facility] underwent left total knee arthroplasty on 05/29/[address] Jayesh Deleon. The procedure was performed without complications or sequelae. The patient is seen and evaluated at bedside today. Pain is well-controlled. Patient has no new complaints today and denies any fevers, chills, nausea, vomiting, or shortness of breath. Vital signs are stable. Dressing is clean dry and intact. Incision looks fine with no erythema or active drainage. Calf is soft and nontender. Patient has full foot and ankle motion without difficulty. Patient's left lower extremity is neurovascularly intact. The patient is orthopedically stable for discharge today. Pertinent Studies: Laboratory Tests 05/30/19 06:46 WBC 19.1 H RBC 2.94 L Hgb 8.9 L D Hct 26.6 L Neutrophils # 17.0 H Patient Condition at Discharge: Stable Plan - Discharge Summary Discharge Rx Participant: Yes New Discharge Prescriptions: New HYDROcodone/APAP 5-325MG [Juda 5] 1 - 2 each PO Q4-6H PRN #56 tab PRN Reason: Pain Sennosides-Docusate Sodium [Senokot-S] 2 tab PO DAILY #30 tablet Rivaroxaban [Xarelto] 10 mg PO DAILY #12 tab Continue glipiZIDE [Glucotrol] 5 mg PO AC-BID Gaxoghvgzonbln-SH-Xmiwotsfyj [Folbic] 1 tab PO DAILY Atorvastatin [Lipitor] 10 mg PO HS metFORMIN HCL 1,000 mg PO BID Lisinopril-Hctz 20-12.5 mg [Zestoretic 20-12.5] 1 tab PO DAILY Multivitamin/Iron/Folic Acid [Centrum Complete Multivit Tab] 1 tab PO DAILY Aspirin [Adult Low Dose Aspirin EC] 81 mg PO DAILY Discharge Medication List Aspirin [Adult Low Dose Aspirin EC] 81 mg PO DAILY 05/25/19 [History] Atorvastatin [Lipitor] 10 mg PO HS 05/25/19 [History] Vkfpiwmprmljry-YT-Ipxsxrztpr [Folbic] 1 tab PO DAILY 05/25/19 [History] Lisinopril-Hctz 20-12.5 mg [Zestoretic 20-12.5] 1 tab PO DAILY 05/25/19 [History] Multivitamin/Iron/Folic Acid [Centrum Complete Multivit Tab] 1 tab PO DAILY 05/25/19 [History] glipiZIDE [Glucotrol] 5 mg PO AC-BID 05/25/19 [History] metFORMIN HCL 1,000 mg PO BID 05/25/19 [History] HYDROcodone/APAP 5-325MG [Juda 5] 1 - 2 each PO Q4-6H PRN #56 tab 05/30/19 [Rx] Rivaroxaban [Xarelto] 10 mg PO DAILY #12 tab 05/30/19 [Rx] Sennosides-Docusate Sodium [Senokot-S] 2 tab PO DAILY #30 tablet 05/30/19 [Rx] Follow up Appointment(s)/Referral(s): [facility],Equipment [NON-STAFF] - As Needed (Continuous Passive Motion knee machine) [facility], [NON-STAFF] - As Needed Bruce Love DO [Primary Care Provider] - 06/06/19 11:00 am Jayesh Deleon DO [Doctor of Osteopathic Medicine] - 06/13/19 9:50 am Ambulatory/Diagnostic Orders: Continuous Passive Motion (CPM) Machine [DME.AMB1] Time Frame: 3 Weeks, Location: None Selected Patient Instructions/Handouts: *Surgery [facility] - On-Q Pain Pump Discharge Instructions, Knee Replacement (DC) Activity/Diet/Wound Care/Special Instructions: Weightbearing as tolerated with walker Keep dressing in place for 10 days unless saturated Xarelto daily for blood clot prevention May shower over dressing CPM Follow up with Dr. Jayesh Deleon in 2 weeks. Call [facility] with questions or concerns, Discharge Disposition: HOME WITH HOME HEALTH SERVICES
[2019-05-30] MEDS ORDERED: FOLIC ACID PO SCH (09:00)
[2019-05-30] MEDS ORDERED: CYANOCOBALAMIN-FA-PYRIDOXINE 1 EACH TAB PO SCH (09:00)
[2019-05-30] MEDS ORDERED: MULTIVITAMIN PO SCH (09:00)
[2019-05-30] MEDS ORDERED: LISINOPRIL-HCTZ 20-12.5 MG 1 EACH TAB PO SCH (09:00)
[2019-05-30] MEDS ORDERED: IRON PO SCH (09:00)
[2019-05-30 11:27] LABS: Glucose,Whole Blood 93 mg/dL (75-99)
[2019-05-30] MEDS ORDERED: MULTIVITAMINS, THERA 1 EACH TAB PO SCH (12:00)
--- NOTE | 2019-05-30 13:13 | P.PN ---
Progress Note - Text Anesthesia POD 1. Patient is status post left TKR under spinal anesthesia with a left adductor canal catheter placed for postoperative pain relief. With ropivacaine 0.2% running at 8 cc's per hour, the patient's VAS is (0, 2). Catheter site is clean dry and intact.
--- NOTE | 2019-05-30 23:48 | P.PN ---
Progress Note - Text Progress Note Date: 05/30/19 - Chief Complaint Left knee surgery Consultation: This is a very pleasant [address] Love. Chronic stable medical conditions include diabetes, hyperlipidemia, hypertension, Patrice arthritis. Has undergone a left total knee arthroplasty. Today-doing better. Some pain in the operative site. Did work with therapy. Did tolerate some diet. No new issues. Review of systems: Was done for constitutional, cardiovascular, GI, pulmonary. relevant finding as above Current medications reviewed in today's electronic records Physical examination: VITAL SIGNS: 98.3, 70, 16, blood pressure 111/56, 99% on room air GENERAL: Sitting up, comfortable EYES: Pupils equal. Conjunctiva normal. HEENT: External appearance of nose and ears normal, oral cavity grossly normal. NECK: JVD not raised; masses not palpable. HEART: First and second heart sounds are normal; no edema. LUNGS: Respiratory rate normal; clear to auscultation. ABDOMEN: Soft, nontender, liver spleen not palpable, no masses palpable. PSYCH: Alert and oriented x3; mood and affect normal MUSCULOSKELETAL: Left knee with a dressing. INVESTIGATIONS, reviewed in the clinical context: White count 19.1 hemoglobin 8.9 Previous testing Lab work from May 09, 2019: White count and hemoglobin 11.1 potassium 4.7 bun 44 creatinine 1.3 Assessment: --Left total knee arthroplasty -Diabetes mellitus type II on oral hypoglycemic -Hyperlipidemia -Essential hypertension -Primary osteoarthritis -Chronic kidney disease stage III probably from nephrosclerosis -Acute postprocedure progress anemia. -Leukocytosis with no clinical evidence of infection. Likely reactive Plan: Stable. Discussed with the patient. For DVT prophylaxis because of security use a smaller dose of aspirin 81 mg twice a day. Thank you Dr. Deleon
== END 2019-05-30 14:30 | disposition home health service (06) ==
LOC: OR 07:17 → 4SSUR 13:38 → OR 05-30 14:30
PROVIDERS: ATTEND Orthopaedic Surgery
DX: M17.12 Unilateral primary osteoarthritis, left knee (principal); I12.9 Hypertensive chronic kidney disease with stage 1 through stage 4 chronic kidney disease, or unspecified chronic kidney disease; E11.22 Type 2 diabetes mellitus with diabetic chronic kidney disease; N18.3 Chronic kidney disease, stage 3 (moderate); E78.5 Hyperlipidemia, unspecified; Z97.3 Presence of spectacles and contact lenses; R63.4 Abnormal weight loss; Z86.73 Personal history of transient ischemic attack (TIA), and cerebral infarction without residual deficits; E55.9 Vitamin D deficiency, unspecified; E53.8 Deficiency of other specified B group vitamins; M81.0 Age-related osteoporosis without current pathological fracture; Z98.51 Tubal ligation status; Z79.84 Long term (current) use of oral hypoglycemic drugs; Z79.1 Long term (current) use of non-steroidal anti-inflammatories (NSAID); Z79.899 Other long term (current) drug therapy; Z79.82 Long term (current) use of aspirin
CPT/HCPCS: 27447; 97161; 64450; 64448; 76942; 85025; 88300; 73560; C1713; C1776; J2250; J0171; J1100; J0690 ×3; J2405; J3010; J1885; J2795 ×2; J2370; J2704; J0735

== ENCOUNTER → 2020-06-25 | Outpatient (CLI) | payer MEDICARE ==
--- NOTE | 2020-06-25 10:33 | BD ---
EXAMINATION TYPE: Axial Bone Density DATE OF EXAM: 06/25/2020 COMPARISON: NONE CLINICAL HISTORY: Height: 61.5 Weight: 160.7 FRAX RISK QUESTIONS: Alcohol (3 or more units per day): NO Family History (Parent hip fracture): yes- mother Glucocorticoids (More than 3mos): no (Ex: prednisone, prednisolone, methylprednisolone, dexamethasone, and hydrocortisone). History of Fracture in Adulthood: no Secondary Osteoporosis: 1. Type 1 Diabetes: no 2. Hyperthyroidism: no 3. Menopause before 45: no 4. Malnutrition: no 5. Chronic liver disease: no Rheumatoid Arthritis: no Current Tobacco Use: no RISK FACTORS HISTORY OF: Surgery to Spine/Hip(right/left)/Wrist (right/left): no Family History of Osteoporosis: no Active: yes Diet low in dairy products/other sources of calcium: yes Postmenopausal woman: ? age 54 Lost more than 2 inches in height since high school: no MEDICATIONS: metformin, lisinopril, atorvastatin, glipizide, aspirin Additional History: EXAM MEASUREMENTS: Bone mineral densitometry was performed using the [employer]. Bone mineral density as measured about the Lumbar spine is: ----- L1-L4(G/cm2): 1.149 T Score Values are as follows: ----- L2: -1.0 ----- L3: 0.1 ----- L4: 0.2 ----- L1-L4: -0.3 Bone mineral density : baseline Bone mineral density about the R hip (g/cm2): 0.660 Bone mineral density about the L hip (g/cm2): 0.580 T Score values are as follows: -----R Neck: -2.7 -----L Neck: -3.3 -----R Total: -2.4 -----L Total: -2.1 Bone mineral density : baseline IMPRESSION: osteoporosis NOTE: T-SCORE=SD OF THE YOUNG ADULT MEAN.
--- NOTE | 2020-06-26 10:35 | MM ---
Reason for exam: screening (asymptomatic). Last mammogram was performed 7 years and 3 months ago. History: Patient is postmenopausal. Took hormonal contraceptives for 3 years. Physical Findings: A clinical breast exam by your physician is recommended on an annual basis and results should be correlated with mammographic findings. MG 3D Screening Mammo W/Cad Bilateral CC and MLO view(s) were taken. Prior study comparison: April 02, 2013, bilateral digital screening mammo w/CAD. April 06, 2011, bilateral digital screening mammo w/CAD. There are scattered fibroglandular densities. Stable benign calcifications. There is no discrete abnormality. No significant changes when compared with prior studies. ASSESSMENT: Benign, BI-RAD 2 RECOMMENDATION: Routine screening mammogram of both breasts in 1 year.
== END | disposition home or self-care (01) ==
LOC: RADMAMWWP 07:23
PROVIDERS: ATTEND Family Medicine
DX: Z12.31 Encounter for screening mammogram for malignant neoplasm of breast (principal); M81.0 Age-related osteoporosis without current pathological fracture; Z78.0 Asymptomatic menopausal state
CPT/HCPCS: 77063; 77067; 77080

== ENCOUNTER 2020-09-02 | Inpatient (IN) | payer MEDICARE | END 2020-09-06 14:17 | disposition home health service (06) | DRG 481 | PROVIDERS: ADMIT Orthopaedic Surgery Sports Medicine | PROC: 0QS734Z Reposition Left Upper Femur with Internal Fixation Device, Percutaneous Approach (ICD-10-PCS; principal; 2020-09-04) | CPT/HCPCS: 36415; 71045; 73501; 73502; 80048; 80053; 81001; 83605; 85025; 85027; 85610; 85730; 87635; 93005; 96374; 96375; 99285 ==

== ENCOUNTER → 2021-09-29 | Outpatient (CLI) | payer MEDICARE ==
[2021-09-29 09:08] LABS: INR 0.9 (<1.2); Partial Thromboplastin Time 24.5 sec (22.0-30.0); Prothrombin Time 10.1 sec (9.0-12.0)
[2021-09-29 10:48] LABS: HCT 37.2 % (37.2-46.3); HGB 11.3 g/dL (12.0-15.0); MCH 28.6 pg (27.0-32.0); MCHC 30.4 g/dL (32.0-37.0); MCV 94.2 fL (80.0-97.0); Mean Platelet Volume 8.7 fL (9.5-12.2); NRBC Per 100 WBC 0 /100 WBCS (0.0-0.0); Platelet Count 270 X 10*3/uL (140-440); RBC 3.95 X 10*6/uL (4.10-5.20); RDW 13.2 % (11.5-14.5); WBC 7.84 X 10*3/uL (4.50-10.00)
[2021-09-29 10:51] LABS: African American GFR (CKD) 44.3 (60.0-200.0); Albumin 4.4 g/dL (3.8-4.9); Albumin/Globulin Ratio 1.69 (1.60-3.17); Anion Gap 12.8 mmol/L (10.00-18.00); BUN/Creat Ratio 23.93 Ratio (12.00-20.00); Blood Urea Nitrogen 33.5 mg/dL (9.0-27.0); Calcium 9.1 mg/dL (8.7-10.3); Carbon Dioxide 23.2 mmol/L (20.0-27.5); Globulin 2.6 g/dL (1.6-3.3); Non-African American GFR(CKD) 38.2 (60.0-200.0); Potassium 4.3 mmol/L (3.5-5.5); Total Bilirubin 0.2 mg/dL (0.30-1.20)
== END | disposition home or self-care (01) ==
LOC: LABPAT 08:02
PROVIDERS: ATTEND Orthopaedic Surgery
DX: Z01.812 Encounter for preprocedural laboratory examination (principal)
CPT/HCPCS: 80053; 85027; 85610; 85730; 87070; 93005

== ENCOUNTER 2021-10-13 11:26 | Day surgery (SDC) | payer MEDICARE ==
[2021-10-07 16:11] VITALS: BMI 28.3
[~2021-10-13 11:26] MED LIST changes: -ACETAMINOPHEN TAB 500 MG TAB PO ONE; -DEXAMETHASONE SOD PHOSPHATE 10 MG/ML 1 ML VIAL IV ONE; -GABAPENTIN 300 MG CAP PO ONE; -LACTATED RINGERS 1,000 ML IV SCH; -LIDOCAINE 1% (10MG/ML) FOR IV START INTRADERMA PRN; -MELOXICAM 7.5 MG TAB PO ONE; -MIDAZOLAM 2 MG/2 ML VIAL IV PRN; -ONDANSETRON 4 MG/2 ML VIAL IVP ONE; -ROPIVACAINE 246.25 MG, EPINEPHrine 0.5 MG, KETOROLAC 30 MG, cloNIDine HCL/PF 80 MCG, WA... MISCELLANE ONE; -TRANEXAMIC ACID 1,000 MG in SODIUM CHLORIDE 0.9% 100 ML IVPB ONE; +TRANEXAMIC ACID IN NACL,ISO-OS 1,000 MG in SALINE 1 100ML.BAG IVPB PRN; -fentaNYL (PF) 50 MCG/ML 2 ML AMP IV PRN
[2021-10-13] MEDS: ONDANSETRON 4 MG/2 ML VIAL IVP ONE ×2 (12:39→13:09)
[2021-10-13] MEDS: MELOXICAM 7.5 MG TAB PO PRN ×2 (12:39→13:09)
[2021-10-13] MEDS: ACETAMINOPHEN TAB 500 MG TAB PO PRN ×2 (12:39→13:09)
[2021-10-13] MEDS: LIDOCAINE 1% (10MG/ML) FOR IV START INTRADERMA PRN ×2 (12:39→13:09)
[2021-10-13] MEDS: LACTATED RINGERS 1,000 ML IV SCH (12:39)
[2021-10-13] MEDS: GABAPENTIN 300 MG CAP PO PRN ×2 (12:40→13:09)
[2021-10-13] MEDS ORDERED: DEXAMETHASONE SOD PHOSPHATE 4 MG/ML 1 ML VIAL IVP ONE ×2 (12:40→13:09)
[2021-10-13] MEDS ORDERED: ACETAMINOPHEN TAB 500 MG TAB ONE (12:54)
[2021-10-13 13:09] LABS: Glucose,Whole Blood 103 mg/dL (70-110)
[2021-10-13] MEDS ORDERED: fentaNYL (PF) 50 MCG/ML 2 ML AMP ONE (14:08)
[2021-10-13] MEDS ORDERED: MIDAZOLAM 2 MG/2 ML VIAL ONE (14:08)
[2021-10-13] MEDS ORDERED: TRANEXAMIC ACID IN NACL,ISO-OS 1,000 MG/100 ML BAG ONE (14:08)
[2021-10-13] MEDS ORDERED: PHENYLEPHRINE-0.9% NACL SYG 1,000 MCG/10 ML SYRINGE ONE (14:08)
[2021-10-13] MEDS ORDERED: ePHEDrine 50 MG/ML 1 ML VIAL ONE (14:08)
[2021-10-13] MEDS ORDERED: PROPOFOL 10 MG/ML 20 ML VIAL IV ONE (14:08)
[2021-10-13] MEDS ORDERED: ROPIVACAINE 5 MG/ML 30 ML VIAL MISCELLANE ONE (15:02)
[2021-10-13] MEDS ORDERED: ceFAZolin 1,000 MG in SODIUM CHLORIDE 0.9% 1,000 ML IRRIGATION ONE (15:03)
--- NOTE | 2021-10-13 15:29 | P.OP ---
Date of Procedure: 10/13/21 Preoperative Diagnosis: Severe osteoarthritis left hip status post percutaneous screw fixation Postoperative Diagnosis: Severe osteoarthritis left hip status post percutaneous screw fixation Procedure(s) Performed: 1. Removal of hardware left hip 2. Left total hip arthroplasty with a direct anterior approach Implants: [employer] Polarstem standard size 2 collar [employer] R3, 3 hole hemispherical acetabular shell, 48 mm [employer] Reflection 6.5 mm cancellus screw, 20 mm 2, 25 mm [employer] R3, XLPE 20 acetabular liner [employer] Oxinium femoral head 32 m, +8 All components were press-fit. The articulation is Oxinium on polyethylene. Anesthesia: spinal Surgeon: Jayesh Deleon Clinical Psychologist Licensed #1: Howard Alcocer Estimated Blood Loss (ml): 300 Pathology: other (Femoral head) Condition: stable Disposition: PACU Indications for Procedure: After failure of conservative treatment we discussed the surgical and nonsurgical treatment options at length. Patient wishes to proceed with removal of hardware and a total hip arthroplasty with a direct anterior approach. Complications specific to this procedure were discussed at length, including but not limited to infection, leg length discrepancy, dislocation, nerve injury, and fracture. Covid-19 was also discussed at length with the patient, and they are aware of the current policies and procedures. The patient was given the option of delaying surgery, but they elect to proceed knowing these risks. Patient is aware of all these complications and informed consent was obtained Operative Findings: The operative findings are consistent with severe osteoarthritis the left hip with retained percutaneous screws Description of Procedure: Patient was seen and evaluated in the preoperative area and the consent was reviewed. The operative site was marked with a skin marker. The patient was then brought to the operating room and given preoperative antibiotics intravenously. 1 g of Tranexamic acid was also given intravenously. A spinal anesthetic was administered by the anesthesia department. The patient was then placed on the Sheldon table with the bony prominences well-padded. The hip area was then prepped with a ChloraPrep solution and draped in the usual sterile fashion. A universal timeout was then performed, which confirmed the patient's name, surgical site, ALLERGIES, and procedure being performed on the consent. Next the incision site was located at 1 cm distal and 2 cm lateral to the anterior superior iliac spine. The skin and subcutaneous tissues were sharply incised. Incision was carefully dissected down to the fascia overlying the tensor fascia barbra muscle. This fascia was then incised in line with the incision. Care was taken to stay laterally in order to avoid injuring the lateral femoral cutaneous nerve. Next, using blunt finger dissection, the tensor fascia barbra muscle was dissected off its investing fascia. The muscle was then carefully retracted laterally with a cobra retractor over the lateral neck of the femur. Next, the circumflex vessels were identified and cauterized using the AquaMantis device. The anterior hip capsule was then exposed. The capsule was then opened and an inverted T fashion. Cobra retractors were then placed intracapsularly. The retractors were maintained intracapsular throughout the procedure. The proximal femur was then visualized. Next, the 3 cannulated screws were located and removed with appropriate screwdriver. Also the washers that were used were removed as well. Fluoroscopic x-rays were then taken in order to evaluate the preoperative leg lengths. A small amount of traction was placed on the leg. The femoral neck was then osteotomized at the appropriate level above the lesser trochanter. A small wedge of bone was then removed from the remaining femoral head. Next, using a corkscrew the femoral head was removed from the acetabulum. On gross visual inspection, the femoral head had complete loss of articular cartilage and multiple periarticular osteophytes. The femoral head was then measured. Attention was then turned to the acetabulum. The acetabulum was exposed and any remaining labrum was excised. Sequential reaming of the acetabulum was performed using fluoroscopic guidance until there was a good bed of bleeding cancellus bone. When the appropriate size was reached, a trial was then placed. The position and fit of the trial was checked with fluoroscopy. The trial was then removed. Then, using fluoroscopic guidance, the final implant was impacted at 20 of anteversion and 40 of abduction, and fully seated in the acetabulum. 3 screws were then placed in the acetabulum. Again fluoroscopy was used to check position of the screws. Next, the liner was then impacted, with a 20 elevated liner located in the anterior superior quadrant. Component locking was confirmed. Attention was then directed to the femur. With the aid of the Sheldon table, the femur was externally rotated to approximately 130, extended, and adducted under the opposite leg. A side hook was then placed under the proximal femur, and the side hook elevator was used to elevate the proximal femur while releasing the capsule. Retractors were then placed. A capsular release was performed, as well as a release of the conjoined tendon, which afforded excellent visualiza tion of the proximal femur. Next, a box osteotome was used to lateralize the proximal femur. A out and out cigar maker hand was then used to locate the femoral canal. Sequential broaching was then performed with appropriate size which afforded excellent fixation in the proximal femur. A trial was then placed with appropriate head and neck, and the hip was gently reduced with the aid of the Sheldon table. Fluoroscopy was then used to check position of the components, as well as to ensure equal leg lengths. The hip was then gently dislocated and the trials were then removed. Final implants were then impacted and the hip was again reduced. Final fluoroscopic x-rays confirmed that the components were in anatomic position, as well as equal leg lengths. The hip was also taken through range of motion, and found to be stable. The hip was then copiously irrigated with antibiotic solution with pulsatile lavage. The hip was then irrigated with Irrisept solution. The soft tissues were then injected with a ropivacaine solution. A second dose of 1 g of Tranexamic acid was also given intravenously. The fascia was then closed with 2-0 strata fix suture. The subcutaneous tissue was closed with 3-0 Vicryl. The subcuticular tissue was closed with 3-0 strata fix suture. The skin was then closed with Exofin skin glue. After the glue and dried, and Optifoam silver impregnated dressing was applied. The patient was then transferred to the recovery room in stable condition. The hair assistant JAREK Lozano was required due to the complexity of surgery, and the need for skilled surgical first assistant for positioning, draping, exposure, retraction, and closure of the wound.
[2021-10-13] MEDS ORDERED: LACTATED RINGERS 1,000 ML IV ONE (15:36)
--- NOTE | 2021-10-13 15:36 | FL ---
Fluoroscopy HISTORY: Anterior hip replacement on the left 41 seconds fluoroscopy time supplied to the referring clinician. 3 intraoperative C-arm images docum ent the procedure. See dictated report from orthopedic surgery.
[2021-10-13] MEDS ORDERED: NALOXONE 0.4 MG/ML 1 ML VIAL IV PRN (15:59)
[2021-10-13] MEDS ORDERED: ONDANSETRON 4 MG/2 ML VIAL IVP PRN (15:59)
[2021-10-13] MEDS ORDERED: HYDROmorphone 0.5 MG/0.5 ML SYRINGE IVP PRN ×3 (15:59)
[2021-10-13] MEDS ORDERED: HYDROcodone/APAP 5-325MG 1 EACH TAB PO PRN ×2 (15:59)
[2021-10-13] MEDS ORDERED: hydrOXYzine pamoate 25 MG CAP PO PRN (15:59)
--- NOTE | 2021-10-13 16:26 | XR ---
Limited left hip HISTORY: Status post left hip arthroplasty Single frontal view of the left hip Patient is status post left hip arthroplasty. There is anatomic alignment. Lucencies present within t he soft tissues. There are vascular calcifications noted incidentally. IMPRESSION: Orthopedic follow-up.
[2021-10-13 16:50] LABS: Glucose,Whole Blood 135 mg/dL (70-110)
[2021-10-13] MEDS: ASPIRIN 325 MG TAB PO SCH (20:59)
[2021-10-13] MEDS ORDERED: SENNOSIDES-DOCUSATE SODIUM 1 EACH TAB PO SCH (21:00)
[2021-10-14 01:08] VITALS: RESP 18
[2021-10-14] MEDS: LACTATED RINGERS 1,000 ML IV SCH (05:54)
[2021-10-14 07:37] VITALS: BP 99/50; PULSE 85; TEMP 98
[2021-10-14] MEDS: ASPIRIN 325 MG TAB PO SCH (07:43)
--- NOTE | 2021-10-14 09:06 | P.DS ---
Providers Expected date of discharge: 10/14/21 Attending physician: Jayesh Deleon Consults: 10/13/21 15:59 Consult Physician Routine Consulting Provider: Nimo Sanchez Consult Reason/Comments: medical management Do you want consulting provider notified?: Yes Primary care physician: Bruce Love - Discharge Diagnosis(es) (1) Osteoarthritis of left hip Current Visit: Yes Status: Acute (2) S/P total left hip arthroplasty Current Visit: Yes Status: Acute Hospital Course: This is a 71-year-old female with known history of degenerative arthritis of the left hip. The patient presents for evaluation. After discussion and consideration patient elects to proceed with total hip arthroplasty with direct anterior approach. The patient is seen preoperatively by primary care physician and cleared for surgery. Patient is admitted to [facility] on 10/13/2021 for total hip arthroplasty with direct anterior approach. The procedure is performed without complication or sequelae. The patient is doing well postoperatively. Labs and vital signs are stable on day of discharge. On day of discharge patient's hip incision is healing well. There is minimal erythema. There is no drainage noted at this time. There is minimal soft tissue swelling to the hip and thigh. Patient has full foot and ankle motion without difficulty or pain. Neurovascular status to the lower extremity is intact. Patient is discharged to home in good condition. Please see med rec for accurate list of home medications. Patient Condition at Discharge: Good Plan - Discharge Summary Discharge Rx Participant: No New Discharge Prescriptions: New Aspirin 325 mg PO DAILY 30 Days #60 tab Celecoxib [CeleBREX] 200 mg PO DAILY #30 cap HYDROcodone/APAP 7.5-325MG [Dodge 7.5-325] 1 - 2 tab PO Q6H PRN 7 Days #32 tab PRN Reason: Pain Sennosides-Docusate Sodium [Senokot-S] 1 tab PO BID 30 Days #60 tablet Ondansetron Odt [Zofran Odt] 4 mg PO Q8HR PRN #14 tab PRN Reason: Nausea No Action Atorvastatin [Lipitor] 10 mg PO HS Lisinopril-Hctz 20-12.5 mg [Zestoretic 20-12.5] 1 tab PO 2030 Multivitamin/Iron/Folic Acid [Centrum Complete Multivit Tab] 1 tab PO DAILY Aspirin [Adult Low Dose Aspirin EC] 81 mg PO DAILY metFORMIN HCL 500 mg PO BID Alendronate Sodium [Fosamax] 70 mg PO MARTINS Acetaminophen Tab [Tylenol] 650 mg PO Q4-6H PRN PRN Reason: Pain Sulfamethox-Tmp 800-160Mg [Bactrim DS 800-160 mg] 1 tab PO BID Dapagliflozin Propanediol [Farxiga] 10 mg PO DAILY HYDROcodone/APAP 5-325MG [Dodge 5-325] 1 tab PO Q4HR PRN PRN Reason: Pain Discharge Medication List Aspirin [Adult Low Dose Aspirin EC] 81 mg PO DAILY 05/25/19 [History] Atorvastatin [Lipitor] 10 mg PO HS 05/25/19 [History] Lisinopril-Hctz 20-12.5 mg [Zestoretic 20-12.5] 1 tab PO 2030 05/25/19 [History] Multivitamin/Iron/Folic Acid [Centrum Complete Multivit Tab] 1 tab PO DAILY 09/07 [History] metFORMIN HCL 500 mg PO BID 09/02/20 [History] Alendronate Sodium [Fosamax] 70 mg PO MARTINS 10/07/21 [History] Dapagliflozin Propanediol [Farxiga] 10 mg PO DAILY 10/07/21 [History] HYDROcodone/APAP 5-325MG [Dodge 5-325] 1 tab PO Q4HR PRN 10/07/21 [History] Acetaminophen Tab [Tylenol] 650 mg PO Q4-6H PRN 10/13/21 [History] Aspirin 325 mg PO DAILY 30 Days #60 tab 10/13/21 [Rx] Celecoxib [CeleBREX] 200 mg PO DAILY #30 cap 10/13/21 [Rx] HYDROcodone/APAP 7.5-325MG [Dodge 7.5-325] 1 - 2 tab PO Q6H PRN 7 Days #32 tab 10/13/21 [Rx] Ondansetron Odt [Zofran Odt] 4 mg PO Q8HR PRN #14 tab 10/13/21 [Rx] Sennosides-Docusate Sodium [Senokot-S] 1 tab PO BID 30 Days #60 tablet 10/13/21 [Rx] Sulfamethox-Tmp 800-160Mg [Bactrim DS 800-160 mg] 1 tab PO BID 10/13/21 [History] Follow up Appointment(s)/Referral(s): [facility], [NON-STAFF] - 1-2 Days ([facility] will call you ro schedule your in home physical therapy visits. ) Jayesh Deleon DO [Doctor of Osteopathic Medicine] - 2 Weeks Activity/Diet/Wound Care/Special Instructions: Weight bear as tolerated on operative hip with walker. Keep Optifoam dressing intact for 7 days. May shower over dressing in 48 hours post-op. Take aspirin 325mg BID x 4 week for blood clot prevention. Follow-up in the office in two weeks with Dr. Deleon. Call the office with any questions or concerns, Discharge Disposition: HOME WITH HOME HEALTH SERVICES
[2021-10-14 09:30] LABS: Basophils # (A) 0.01 X 10*3/uL (0.00-0.10); Basophils % (A) 0.1 %; Eosinophils # (A) 0 X 10*3/uL (0.04-0.35); Eosinophils % (A) 0 %; HCT 27.7 % (37.2-46.3); HGB 8.6 g/dL (12.0-15.0); Immature Grans, Automated 0.4 %; Lymphocytes # (A) 1.26 X 10*3/uL (0.90-5.00); Lymphocytes % (A) 11.2 %; MCH 29.1 pg (27.0-32.0); MCV 93.6 fL (80.0-97.0); Mean Platelet Volume 8.6 fL (9.5-12.2); Monocytes % (A) 6.2 %; NRBC Per 100 WBC 0 /100 WBCS (0.0-0.0); Neutrophils # (A) 9.25 X 10*3/uL (1.80-7.70); Neutrophils % (A) 82.1 %; Platelet Count 265 X 10*3/uL (140-440); RBC 2.96 X 10*6/uL (4.10-5.20); RDW 13.3 % (11.5-14.5); WBC 11.27 X 10*3/uL (4.50-10.00)
--- NOTE | 2021-10-14 15:29 | P.CONS ---
History of Present Illness - Reason for Consult Consult date: 10/14/21 Medical management status post left total hip arthroplasty,hx of DM and HTN - History of Present Illness This is a very pleasant 71-year-old female who was recently admitted under orthopedic services for left total hip arthroplasty with Dr. Deleon and underwent left total hip arthroplasty postop day #1. Patient follows with Dr. Nelli Love in the outpatient setting and has history of diabetes mellitus type 2, hyperlipidemia, hypertension, and osteoarthritis. On exam vital signs are stable and blood pressure medication has been held for today to monitor closely for any postoperative hypotension. Blood sugars have been monitored and well controlled and patient reports to being on low-dose oral diabetic agents as her blood sugars are well managed. Discussed with the patient about resuming home medications and monitoring blood sugars and blood pressure in the outpatient setting and resuming medications within the next day or so. Patient artery has a scheduled follow-up appointment with Dr. Love. Encouraged incentive spirometer and continuing to use at least 10 times every hour while awake. She has been working with physical therapy and doing well and reports no pain. Patient reports the passing gas but no bowel movement yet and also is urinating with no difficulties. Patient denies chest pain or shortness of breath and is afebrile. Review Of Systems: Constitutional: No fever, no chills, no night sweats. No weight change. No weakness, fatigue or lethargy. No daytime sleepiness. EENT: No headache. No blurred vision or double vision, no loss of vision. No loss of Hearing, no ringing in the ears, no dizziness. No nasal drainage or congestion. No epistaxis. No sore throat. Lungs: No shortness of breath, cough, no sputum production. No wheezing. Cardiovascular: No chest pain, no lower extremity edema. No palpitations. No paroxysmal nocturnal dyspnea. No orthopnea. No lightheadedness or dizziness. No syncopal episodes. Abdominal: No abdominal pain. No nausea, vomiting. No diarrhea. No constipation. No bloody or tarry stools.. No loss of appetite. Genitourinary: No dysuria, increased frequency, urgency. No urinary retention. Musculoskeletal: No myalgias. No muscle weakness, no gait dysfunction, no frequent falls. No back pain. No neck pain. Reports previous chronic left hip pain Integumentary: No wounds, no lesions. No rash or pruritus. No unusual bruising. No change in hair or nails. Neurologic: No aphasia. No facial droop. No change in mentation. No head injury. No headache. No paralysis. No paresthesia. Psychiatric: No depression. No anxiety. No mood swings. Endocrine: No abnormal blood sugars. No weight change. No excessive sweating or thirst. No cold intolerance. PHYSICAL EXAMINATION: GENERAL: The patient is alert and oriented x4, Well developed, well nourished. HEENT: Pupils are round and equally reacting to light. EOMI. no scleral icterus. No conjunctival pallor. Normocephalic, atraumatic. No pharyngeal erythema. No thyromegaly. CARDIOVASCULAR: S1 and S2 muffled PULMONARY: Lung sounds are clear to auscultation with no wheezing or rhonchi noted ABDOMEN: soft. Nontender on exam. non-distended, normoactive bowel sounds. No palpable organomegaly. MUSCULOSKELETAL: No joint swelling or deformity. EXTREMITIES: No cyanosis, clubbing, or pedal edema. Left hip surgical dressing is intact NEUROLOGICAL: Gross neurological examination did not reveal any focal deficits. SKIN: No rashes. Assessment: Left hip osteoarthritis status post left total hip arthroplasty postop day 1 History of hypertension Diabetes mellitus type 2, non-insulin dependent Leukocytosis most likely reactive Hyperlipidemia GI prophylaxis DVT prophylaxis Full code Plan: Recommend to continue with current medications and management per orthopedic services. Patient does take blood pressure medication although have been held t o monitor closely for any postoperative hypotension. Blood sugars well controlled and patient takes oral diabetic agents and have been resumed and recommend monitoring blood pressures and resuming medication slowly in the outpatient setting. Patient does have a follow-up plan with Dr. Nelli bryant scheduled for next week and also will follow-up with orthopedics in the outpatient setting. Patient with an incentive spirometer at the bedside and encourage the patient to continue using at least 10 times every hour while awake. Recommend repeat labs at follow-up appointment to monitor WBC trending down. Patient is afebrile denies any chest pain or shortness of breath. Patient reports the passing gas although did not have a bowel movement yet. Patient is voiding with no difficulties. We will continue to follow with orthopedics during hospitalization. Thank you for this consultation. Patient anticipates being discharged today. The impression and plan of care has been dictated by Lucy Alex, nurse practitioner as directed. Dr. Augusto MD I have performed a history and examination and MDM of this patient, discussed the same with the dictator, and agree with the dictator's assessment and plan as written ,documented as a scribe. Based on total visit time, I have performed more than 50% of the visit. Any additional findings or plans will be noted. Past Medical History Past Medical History: CVA/TIA, Diabetes Mellitus, Hyperlipidemia, Hypertension, Osteoarthritis (OA) Additional Past Medical History / Comment(s): possible TIA, balance issue from bad hip, recent UTI/finished antibiotics, left eye laser surgery for glaucoma History of Any Multi-Drug Resistant Organisms: None Reported Past Surgical History: Bladder Surgery, Joint Replacement, Tubal Ligation Additional Past Surgical History / Comment(s): Hysterectomy(pt not sure of hysterectomy)/bladder sling, total L knee arthroplasty, colonoscopy,surgery for fx left femur/pins 2020, Past Anesthesia/Blood Transfusion Reactions: No Reported Reaction Past Psychological History: No Psychological Hx Reported Additional Psychological History / Comment(s): . Smoking Status: Never smoker Past Alcohol Use History: None Reported Past Drug Use History: None Reported - Past Family History Father Family Medical History: Cancer Additional Family Medical History / Comment(s): Father of esophageal cancer. Mother Family Medical History: No Reported History Additional Family Medical History / Comment(s): Mother is in her mid 80s and healthy. Medications and Allergies Home Medications Medication Instructions Recorded Confirmed Type Aspirin [Adult Low Dose Aspirin EC] 81 mg PO DAILY 05/25/19 10/13/21 History Atorvastatin [Lipitor] 10 mg PO HS 05/25/19 10/13/21 History Lisinopril-Hctz 20-12.5 mg 1 tab PO 202905/25/19 10/13/21 History [Zestoretic 20-12.5] Multivitamin/Iron/Folic Acid 1 tab PO DAILY 05/25/19 10/13/21 History [Centrum Complete Multivit Tab] metFORMIN HCL 500 mg PO BID 09/02/20 10/13/21 History Alendronate Sodium [Fosamax] 70 mg PO MARTINS 10/07/21 10/13/21 History Dapagliflozin Propanediol [Farxiga] 10 mg PO DAILY 10/07/21 10/13/21 History HYDROcodone/APAP 5-325MG [[place] 1 tab PO Q4HR PRN 10/07/21 10/13/21 History 5-325] Acetaminophen Tab [Tylenol] 650 mg PO Q4-6H PRN 10/13/21 10/13/21 History Aspirin 325 mg PO DAILY 30 Days #60 tab 10/13/21 Rx Celecoxib [CeleBREX] 200 mg PO DAILY #30 cap 10/13/21 Rx HYDROcodone/APAP 7.5-325MG [[place]ley 1 - 2 tab PO Q6H PRN 7 Days #32 tab 10/13/21 Rx 7.5-325] Ondansetron Odt [Zofran Odt] 4 mg PO Q8HR PRN #14 tab 10/13/21 Rx Sennosides-Docusate Sodium 1 tab PO BID 30 Days #60 tablet 10/13/21 Rx [Senokot-S] Sulfamethox-Tmp 800-160Mg [Bactrim 1 tab PO BID 10/13/21 10/13/21 History DS 800-160 mg] Allergies Allergy/AdvReac Type Severity Reaction Status Date / Time No Known Allergies Allergy Verified 10/13/21 12:38 Physical Exam Vitals: Vital Signs Temp Pulse Pulse Pulse Resp BP Pulse Ox 10/14/21 07:36 98.0 F 85 18 99/50 97 10/14/21 00:59 97.7 F 95 18 95/58 97 10/13/21 20:00 105 H 17 10/13/21 19:12 97.8 F 119 H 16 127/70 97 10/13/21 18:52 97.8 F 119 H 16 127/70 97 10/13/21 18:45 103 H 16 119/51 98 10/13/21 18:25 100 16 116/52 97 10/13/21 17:55 97 16 114/51 99 10/13/21 17:40 93 16 103/79 99 10/13/21 17:25 97 16 107/49 99 10/13/21 17:10 95 16 107/53 99 10/13/21 16:55 90 16 102/58 99 10/13/21 16:40 87 16 109/50 100 10/13/21 16:25 75 16 107/47 98 10/13/21 16:10 93 16 95/43 97 10/13/21 15:55 97 F L 99 14 92/47 95 10/13/21 12:28 97.8 F 90 16 140/63 97 Intake and Output 10/13/21 10/14/21 10/14/21 22:59 06:59 14:59 Intake Total 301 Balance 301 Intake: IV 301 Other: Voiding Method Toilet # Voids 1 Weight 67 kg Results CBC & Chem 7: 10/14/21 05:54 Labs: Abnormal Lab Results - Last 24 Hours (Table) 10/13/21 Range/Units 16:48 POC Glucose (mg/dL) 135 H (70-110) mg/dL
== END 2021-10-14 11:08 | disposition home health service (06) ==
LOC: OR 11:26 → 4SSUR 15:47 → OR 10-14 11:08
PROVIDERS: ATTEND Orthopaedic Surgery
DX: M16.12 Unilateral primary osteoarthritis, left hip (principal); Z96.89 Presence of other specified functional implants; M21.70 Unequal limb length (acquired), unspecified site; M87.052 Idiopathic aseptic necrosis of left femur; E11.69 Type 2 diabetes mellitus with other specified complication; E78.5 Hyperlipidemia, unspecified; I12.9 Hypertensive chronic kidney disease with stage 1 through stage 4 chronic kidney disease, or unspecified chronic kidney disease; E11.22 Type 2 diabetes mellitus with diabetic chronic kidney disease; N18.30 Chronic kidney disease, stage 3 unspecified; D63.1 Anemia in chronic kidney disease; Z79.899 Other long term (current) drug therapy; Z79.84 Long term (current) use of oral hypoglycemic drugs; Z79.82 Long term (current) use of aspirin; M81.0 Age-related osteoporosis without current pathological fracture; E55.9 Vitamin D deficiency, unspecified
CPT/HCPCS: 27130; 20680; 97161; 97165; 86900; 86901; 85025; 86850; 88300; 73501; C1776; J1100; J0690 ×3; J2405; J2795

== ENCOUNTER 2021-10-16 13:14 | Emergency (ER) | payer MEDICARE ==
[2021-10-16 13:24] VITALS: TEMP 97.5
[2021-10-16] MEDS ORDERED: TOPICAL SKIN ADHESIVE 1 EACH AMP TOPICAL ONE (14:29)
[2021-10-16] MEDS ORDERED: DIPH,PERTUS(ACELL)TETVAC-LF 0.5 ML VIAL IM ONE (14:29)
--- NOTE | 2021-10-16 14:34 | ED ---
Wound/Laceration HPI - General Chief Complaint: Wound/Laceration Stated Complaint: head lac Time Seen by Provider: 10/16/21 14:25 Source: patient, family, RN notes reviewed, old records reviewed Mode of arrival: ambulatory Limitations: no limitations - History of Present Illness Initial Comments: Well-appearing 71-year-old female presents to the emergency room with a hematoma and laceration to the left side of her forehead. Patient states that she was rushing to the bathroom to have a bowel movement and fell forward hitting her head on the wall. No loss of consciousness. She denies any blood thinners. She believes her glasses caused a laceration as they did break. She is unsure if her tetanus shot is up-to-date. She did sustain a laceration approximately 3 cm, bleeding is controlled. She states that she just underwent total left hip surgery on October 13. Takes only a baby aspirin daily. -: hour(s) (4) Location: face (left side forehead) Place: home Patient Tetanus UTD: No Context: fall Associated Symptoms: none - Related Data Home Medications Medication Instructions Recorded Confirmed Aspirin [Adult Low Dose Aspirin EC] 81 mg PO DAILY 05/25/19 10/13/21 Atorvastatin [Lipitor] 10 mg PO HS 05/25/19 10/13/21 Lisinopril-Hctz 20-12.5 mg 1 tab PO 2030 05/25/19 10/13/21 [Zestoretic 20-12.5] Multivitamin/Iron/Folic Acid 1 tab PO DAILY 05/25/19 10/13/21 [Centrum Complete Multivit Tab] metFORMIN HCL 500 mg PO BID 09/02/20 10/13/21 Alendronate Sodium [Fosamax] 70 mg PO MARTINS 10/07/21 10/13/21 Dapagliflozin Propanediol [Farxiga] 10 mg PO DAILY 10/07/21 10/13/21 HYDROcodone/APAP 5-325MG [[place] 1 tab PO Q4HR PRN 10/07/21 10/13/21 5-325] Acetaminophen Tab [Tylenol] 650 mg PO Q4-6H PRN 10/13/21 10/13/21 Sulfamethox-Tmp 800-160Mg [Bactrim 1 tab PO BID 10/13/21 10/13/21 DS 800-160 mg] Previous Rx's Medication Instructions Recorded Aspirin 325 mg PO DAILY 30 Days #60 tab 10/13/21 Celecoxib [CeleBREX] 200 mg PO DAILY #30 cap 10/13/21 HYDROcodone/APAP 7.5-325MG [[place] 1 - 2 tab PO Q6H PRN 7 Days #32 tab 10/13/21 7.5-325] Ondansetron Odt [Zofran Odt] 4 mg PO Q8HR PRN #14 tab 10/13/21 Sennosides-Docusate Sodium 1 tab PO BID 30 Days #60 tablet 10/13/21 [Senokot-S] Allergies Allergy/AdvReac Type Severity Reaction Status Date / Time No Known Allergies Allergy Verified 10/16/21 13:24 Review of Systems ROS Statement: Those systems with pertinent positive or pertinent negative responses have been documented in the HPI. ROS Other: All systems not noted in ROS Statement are negative. Past Medical History Past Medical History: CVA/TIA, Diabetes Mellitus, Hyperlipidemia, Hypertension, Osteoarthritis (OA) Additional Past Medical History / Comment(s): possible TIA, balance issue from bad hip, recent UTI/finished antibiotics, left eye laser surgery for glaucoma History of Any Multi-Drug Resistant Organisms: None Reported Past Surgical History: Bladder Surgery, Joint Replacement, Tubal Ligation Additional Past Surgical History / Comment(s): Hysterectomy(pt not sure of hysterectomy)/bladder sling, total L knee arthroplasty, colonoscopy,surgery for fx left femur/pins 2020, Past Anesthesia/Blood Transfusion Reactions: No Reported Reaction Past Psychological History: No Psychological Hx Reported Smoking Status: Never smoker Past Alcohol Use History: None Reported Past Drug Use History: None Reported - Past Family History Father Family Medical History: Cancer Additional Family Medical History / Comment(s): Father of esophageal cancer. Mother Family Medical History: No Reported History Additional Family Medical History / Comment(s): Mother is in her mid 80s and healthy. General Exam Limitations: no limitations General appearance: alert, in no apparent distress Head exam: Present: other (hematoma left forehead and bruising above left eye; 3cm laceration above left eyebrow) Eye exam: Present: normal appearance, PERRL, EOMI. Absent: scleral icterus, conjunctival injection, nystagmus ENT exam: Present: mucous membranes moist Neck exam: Present: normal inspection, full ROM. Absent: tenderness, meningismus Respiratory exam: Absent: respiratory distress, chest wall tenderness, accessory muscle use Cardiovascular Exam: Present: tachycardia GI/Abdominal exam: Present: soft Extremities exam: Present: normal capillary refill Neurological exam: Present: alert, oriented X3, CN II-XII intact, normal gait (with walker) Expanded Patient oriented to: Present: person, place, time Speech: Present: fluid speech Cranial nerves: EOM's Intact: Normal, Gag Reflex: Normal, Tongue Deviation: Normal, Facial Sensation: Normal Eye Response: (4) open spontaneously Motor Response: (6) obeys commands Verbal Response: (5) oriented [place] Total: 15 Psychiatric exam: Present: normal affect, normal mood Skin exam: Present: warm, dry, normal color. Absent: cyanosis, diaphoretic, petechiae, pallor Course Vital Signs 10/16/21 10/16/21 13:20 16:22 Temperature 97.5 F L Pulse Rate 127 H 102 H Respiratory 18 20 Rate Blood Pressure 139/58 93/68 O2 Sat by Pulse 100 98 Oximetry Medical Decision Making - Medical Decision Making Patient was offered sutures and declined requesting skin adhesive for closure. Wound was closed and approximated with skin glue and Steri-Strips after irrigation. Tetanus shot was updated at this visit. She does take an aspirin a day. Due to swelling around the left orbit and left side of forehead near adventism, CT was performed. CT shows no acute intracranial abnormalities. Patient has no pain. Upon arrival patient's heart rate was elevated, states she was nervous. At discharge heart rate apically was 92. She was directed to keep wound clean and dry. Follow-up with her primary care doctor this week. Return to the emergency room with a concerning symptoms. Patient and son are agreeable to this plan of care. Case discussed with Dr Green. Disposition Clinical Impression: Laceration, Fall Disposition: HOME SELF-CARE Condition: Good Instructions (If sedation given, give patient instructions): Laceration (ED), Fall Prevention for Older Adults (ED), Skin Adhesive Care (ED) Additional Instructions: Do not put any ointments or lotions on the wound. Follow-up with the primary care doctor next week. Return to emergency room with any new or concerning symptoms including headaches, dizziness or signs of infection including fever, redness or drainage. Is patient prescribed a controlled substance at d/c from ED?: No Referrals: Bruce Love DO [Primary Care Provider] - 1-2 days Time of Disposition: 16:06
--- NOTE | 2021-10-16 15:56 | CT ---
EXAMINATION TYPE: CT brain glenroy poon DATE OF EXAM: 10/16/2021 COMPARISON: 01/22/2019 HISTORY: 71-year-old female with pain after Fall CT DLP: 1290.4 mGycm Automated exposure control for dose reduction was used. Technique: Examination of the head was done in axial plane without intravenous contrast. Coronal and sagittal reconstructions performed. CT of the cervical spine was obtained in axial plane without intravenous injection of contrast mater ial. Coronal and sagittal reformatted images were obtained from the axial views for evaluation of f ractures, spinal alignment and canal. FINDINGS: Head: There is no evidence of acute intracranial hemorrhage, acute ischemic changes, mass, mass-effect, or extra-axial fluid collection. There is no effacement of cerebral sulci or basal subarachnoid cister ns. There is no hydrocephalus. There is no midline shift. Betancourt-white matter distinction is preserv ed. Siop-oc-kwsfbgch volume loss overlying the bilateral cerebral convexities. Mild patchy periventricula r white matter hypodensities relating to chronic small vessel ischemic disease. 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 Partially empty sella. Apical scarring calcifi cations in the carotid siphons. Paranasal sinuses show mild mucosal thickening right maxillary sinus. Mastoid air cells are well pneu matized. Orbits and globes are intact. Cervical spine: Scattered periodontal disease. Degenerative changes left greater than right sternoclavicular joints. No craniocervical junction abnormalities, predental space widening, or prevertebral soft tissue swell ing. Moderate degenerative change C1 dens articulation. Moderate distention of the degenerative change particularly at C5-C7 levels with disc space narrowing and discussed by complex formation. No significant spinal canal stenosis is identified allowing for technique. Degenerative grade 1 anterolisthesis C4-C5 and C7-T1. Uncovertebral joint and facet arthropathy mid and lower cervical spine. Variable mild neuroforaminal stenoses throughout. No acute fracture of the cervical spine. Sagittal and coronal reformatted images confirm above findings. COMBINED IMPRESSION: 1. No acute intracranial abnormality seen. Similar mild generalized atrophy and mild burden of chroni c small vessel ischemic disease. 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 2. No acute fracture of the cervical spine. 3. Moderate to advanced spondylotic change, greatest at C5-C7 levels. Degenerative grade 1 anterolist hesis at C4-C5 and C7-T1. 4. Periodontal disease with large dental caries.
[2021-10-16 16:24] VITALS: BP 93/68; PULSE 102; RESP 20
== END 2021-10-16 16:23 | disposition home or self-care (01) ==
LOC: EC 13:14
DX: S01.81XA Laceration without foreign body of other part of head, initial encounter (principal); E11.9 Type 2 diabetes mellitus without complications; I10 Essential (primary) hypertension; E78.5 Hyperlipidemia, unspecified; Z86.73 Personal history of transient ischemic attack (TIA), and cerebral infarction without residual deficits; M19.90 Unspecified osteoarthritis, unspecified site; Z79.899 Other long term (current) drug therapy; Z79.82 Long term (current) use of aspirin; Z79.84 Long term (current) use of oral hypoglycemic drugs; Z23 Encounter for immunization; W18.30XA Fall on same level, unspecified, initial encounter; Y92.009 Unspecified place in unspecified non-institutional (private) residence as the place of occurrence of the external cause
CPT/HCPCS: 70450; 72125; 90471; 90715; 99283

== ENCOUNTER → 2022-01-05 | Outpatient (CLI) | payer MEDICARE ==
--- NOTE | 2022-01-06 11:14 | MM ---
Reason for Exam: Screening (asymptomatic). Last mammogram was performed 1 year(s) and 6 month(s) ago. Patient History: Menarche at age 15. First Full-Term at age 25. Postmenopausal. Patient used Hormonal Contraceptives for 3 years. Risk Values: Obdulia 5 year model risk: 1.5%. NCI Lifetime model risk: 4.8%. Prior Study Comparison: 04/06/2011 Bilateral Screening Mammogram, [facility]. 04/02/2013 Bilateral Screening Mammogram, [facility]. 06/25/2020 Bilateral Screening Mammogram, [facility]. Tissue Density: There are scattered fibroglandular densities. Findings: Analyzed By CAD. Scattered benign oil cyst calcification on both sides. No significant change from prior exam. Overall Assessment: Negative, BI-RAD 1 Management: Screening Mammogram of both breasts in 1 year. 1. Patient should continue monthly self breast exams. 2. A clinical breast exam by your physician is recommended on an annual basis. 3. This exam should not preclude additional follow-up of suspicious palpable abnormalities. Electronically signed and approved by: Sara Christie M.D. Radiologist
== END | disposition home or self-care (01) ==
LOC: RADMAMWWP 11:52
PROVIDERS: ATTEND Family Medicine
DX: Z12.31 Encounter for screening mammogram for malignant neoplasm of breast (principal); Z78.0 Asymptomatic menopausal state
CPT/HCPCS: 77063; 77067

== ENCOUNTER → 2023-01-28 | Outpatient (CLI) | payer MEDICARE ==
--- NOTE | 2023-01-28 10:41 | MM ---
Reason for Exam: Screening (asymptomatic). Last mammogram was performed 1 year(s) and 1 month(s) ago. Patient History: Menarche at age 15. First Full-Term at age 25. Postmenopausal. Patient used Hormonal Contraceptives for 3 years. Risk Values: Obdulia 5 year model risk: 1.5%. NCI Lifetime model risk: 4.5%. Prior Study Comparison: 04/02/2013 Bilateral Screening Mammogram, [facility]. 06/25/2020 Bilateral Screening Mammogram, [facility]. 01/05/2022 Bilateral MG 3D screening mammo w/cad, [facility]. Tissue Density: There are scattered fibroglandular densities. Findings: Analyzed By CAD. There is no suspicious group of microcalcifications or new suspicious mass in either breast. Benign calcifications within both breasts. Overall Assessment: Benign, BI-RAD 2 Management: Screening Mammogram of both breasts in 1 year. A clinical breast exam by your physician is recommended on an annual basis and results should be correlated with mammographic findings. Note on Obdulia scores and lifetime risk: 1. A Obdulia score greater than 3% is considered moderate risk. If this is the case, consider specialist referral to assess eligibility for a risk reducing agent. If overall lifetime risk for the development of breast cancer is 20% or higher, the patient may qualify for future screening with alternating mammogram and breast MRI. Electronically signed and approved by: Cayetano Wesley D.O.
== END | disposition home or self-care (01) ==
LOC: RADMAMWWP 08:54
PROVIDERS: ATTEND Family Medicine
DX: Z12.31 Encounter for screening mammogram for malignant neoplasm of breast (principal); Z78.0 Asymptomatic menopausal state
CPT/HCPCS: 77063; 77067

== ENCOUNTER → 2023-06-09 | Outpatient (CLI) | payer MEDICARE ==
[2023-06-09 16:06] LABS: BUN/Creat Ratio 14.58 Ratio (12.00-20.00); Blood Urea Nitrogen 17.5 mg/dL (9.0-27.0); Calcium 10.3 mg/dL (8.7-10.3); Carbon Dioxide 25.6 mmol/L (21.6-31.8); Chloride 104 mmol/L (96-109); Glucose 110 mg/dL (70-110); Potassium 5.6 mmol/L (3.5-5.5); Sodium 142 mmol/L (135-145)
== END | disposition home or self-care (01) ==
LOC: LABWHC1 09:52
PROVIDERS: ATTEND Family Medicine
DX: E11.21 Type 2 diabetes mellitus with diabetic nephropathy (principal)
CPT/HCPCS: 36415; 80048

== ENCOUNTER → 2024-07-24 | Outpatient (CLI) | payer MEDICARE ==
[2024-07-24 20:52] LABS: Urine Creatinine 94.9 mg/dL (28.0-217.0)
== END | disposition home or self-care (01) ==
LOC: LABPRL 15:00
PROVIDERS: ATTEND Family Medicine
DX: E11.51 Type 2 diabetes mellitus with diabetic peripheral angiopathy without gangrene (principal)
CPT/HCPCS: 82043; 82570

== ENCOUNTER → 2024-09-03 | Outpatient (CLI) | payer MEDICARE ==
--- NOTE | 2024-09-03 09:49 | MM ---
Reason for Exam: Screening (asymptomatic). Last mammogram was performed 1 year(s) and 7 month(s) ago. Patient History: Menarche at age 15. First Full-Term at age 25. Hysterectomy at age 30. Postmenopausal. Patient used Hormonal Contraceptives for 3 years. Risk Values: Obdulia 5 year model risk: 1.6%. NCI Lifetime model risk: 4.3%. Prior Study Comparison: 06/25/2020 Bilateral Screening Mammogram, [facility]. 01/05/2022 Bilateral MG 3D screening mammo w/cad, [facility]. 01/28/2023 Bilateral MG 3D screening mammo w/cad, [facility]. Tissue Density: There are scattered areas of fibroglandular density. Findings: Analyzed By CAD. Benign bilateral oil cyst calcifications. Benign vascular calcifications medial left breast. There is no suspicious group of microcalcifications or new suspicious mass in either breast. Overall Assessment: Benign, BI-RAD 2 Management: Screening Mammogram of both breasts in 1 year. Patient should continue monthly self-breast exams. A clinical breast exam by your physician is recommended on an annual basis. This exam should not preclude additional follow-up of suspicious palpable abnormalities. Note on Obdulia scores and lifetime risk: 1. A Obdulia score greater than 3% is considered moderate risk. If this is the case, consider specialist referral to assess eligibility for a risk reducing agent. 2. If overall lifetime risk for the development of breast cancer is 20% or higher, the patient may qualify for future screening with alternating mammogram and breast MRI. [facility], , 09/03/2024 9:46 AM. Electronically signed and approved by: Sara Christie M.D. Radiologist
== END | disposition home or self-care (01) ==
LOC: RADMAMWWP 08:37
PROVIDERS: ATTEND Family Medicine
DX: Z12.31 Encounter for screening mammogram for malignant neoplasm of breast (principal); R92.323 Mammographic fibroglandular density, bilateral breasts; Z78.0 Asymptomatic menopausal state; Z92.0 Personal history of contraception
CPT/HCPCS: 77067